=== PATIENT | female | born 1950 | race Caucasian/White ===

== ENCOUNTER 2016-11-01 07:45 | Inpatient (IN) | payer MEDICARE ==
--- NOTE | 2017-02-21 08:19 | HP ---
AMENDED REPORT NOW INCLUDES COSIGNER DESIGNATION - ESIGNED BEFORE ADJUSTMENT DATE OF ADMISSION: 02/28/17 DATE OF OFFICE VISIT: 02/20/17 SURGEON: Karely Coyle MD ATTENDING PHYSICIAN: Karely Coyle MD * (dictated by FANTASMA Alamo) PROCEDURE: Right total knee arthroplasty. CHIEF COMPLAINT: Right knee pain. HISTORY OF PRESENT ILLNESS: Ms. Gerardo is a 66-year-old female with complaints of right knee pain secondary to advanced osteoarthritis. She's failed conservative management and has elected to proceed with a right total knee arthroplasty. PAST MEDICAL HISTORY: 1. Atrial fibrillation. 2. Hypertension. 3. Sleep apnea. PAST SURGICAL HISTORY: 1. . 2. Bilateral knee arthroscopies. 3. Nasal polyp removal. 4. Tonsillectomy, adenoidectomy. 5. I and D of the left knee x2. 6. Exploratory laparoscopy. CURRENT MEDICATIONS: 1. Percocet. 2. Aspirin 81 mg daily. 3. Triamterene/hydrochlorothiazide 37.5/25 daily. 4. Folate 1 mg daily. 5. Vitamin D 2000 units daily. 6. Metoprolol 100 mg twice a day. 7. Magnesium 400 mg two capsules daily. 8. Fluoxetine 60 mg daily. 9. Amlodipine 2.5 mg daily. ALLERGIES: No known drug allergies. FAMILY HISTORY: Heart disease. SOCIAL HISTORY: She is a 66-year-old female. She lives alone. She is a retired plant operator helper. She uses occasional alcohol, and denies use of alcohol or tobacco. REVIEW OF SYSTEMS: A complete 14-point review of systems was reviewed with the patient and is all negative or noncontributory. PHYSICAL EXAMINATION GENERAL: She is well developed, well nourished, in no acute distress. VITAL SIGNS: She stands 5 feet 9 inches tall, weighs 225 pounds. Her blood pressure is 123/88, and her heart rate is 55. HEENT: Normocephalic, atraumatic. NECK: Supple. No palpable lymph nodes. PULMONARY: The lungs are clear to auscultation bilaterally. CARDIO: Regular rate and rhythm. Strong S1 and S2. ABDOMEN: Soft, nontender, nondistended. NEUROLOGIC: She is alert and oriented x3. Cranial nerves II through XII are intact. MUSCULOSKELETAL: Right lower extremity skin is intact. There are no open wounds or abrasions. She has moderate joint effusion, some tenderness over the medial and lateral joint line to 120 degrees of flexion. Her lower extremity muscle group strength is intact at 5/5. She has 2+ dorsalis pedis pulses and intact sensation. ASSESSMENT AND PLAN: Ms. Gerardo is a 66-year-old female with complaints of right knee pain. She has failed conservative management and has elected to proceed with a right total knee arthroplasty which is scheduled for 02/28/[address] Coyle discussed the risks and benefits of the surgery at today's visit, and all of her questions were answered. Percocet, Colace and Coumadin were sent to her pharmacy for post-operative pain control and DVT prophylaxis. She will see Dr. Coyle two weeks after the surgery. FANTASMA ALAMO [id number]/[facility] #: [id number] JOSE M
[2017-02-27] MEDS ORDERED: Buffered Lidocaine 0.9% SYRIN* 5 ML/SYR SYRINGE INTRADERM ONE (13:17)
[2017-02-28] MEDS ORDERED: Dexamethasone IV* 4 MG/ML 1 ML (4 MG) IV SLOW PU ONE (06:00)
[2017-02-28] MEDS ORDERED: Famotidine IV* 10 MG/ML 2 ML (20 mg) IV ONE (06:00)
[2017-02-28] MEDS ORDERED: Famotidine IV* 10 MG/ML 2 ML (20 mg) ONE (10:10)
[2017-02-28] MEDS ORDERED: Dexamethasone IV* 4 MG/ML 1 ML (4 MG) ONE (10:10)
[2017-02-28] MEDS ORDERED: Midazolam* 1 MG/ML 5 ML VIAL (5 MG) ONE ×2 (10:48→12:33)
[2017-02-28] MEDS ORDERED: KETAMINE HCL* 50 MG/ML 10 ML VIAL ONE (10:48)
[2017-02-28] MEDS ORDERED: Morphine PF AMP (0.5MG/ML)* 5 MG/10 ML AMP ONE (10:48)
[2017-02-28] MEDS ORDERED: Phenylephrine INJ* 10 MG/ML 1 ML VIAL (10 MG) ONE (10:50)
[2017-02-28] MEDS ORDERED: Propofol* 10 MG/ML 20 ML BTL IV PUSH ONE ×2 (10:52→13:41)
[2017-02-28] MEDS ORDERED: ceFAZolin 2 GM PREMIX(*) 2 GM/50 ML BAG IVPB ONE (11:14)
[2017-02-28] MEDS ORDERED: Nalbuphine* 20 MG/ML 1 ML VIAL IV PRN ×2 (13:24)
[2017-02-28] MEDS ORDERED: Naloxone* 0.4 MG/ML 1 ML VIAL IV PRN (13:24)
[2017-02-28] MEDS ORDERED: Ondansetron INJ* 2 MG/ML VIAL IV PRN (13:24)
[2017-02-28] MEDS ORDERED: fentaNYL* 50 MCG/ML 2 ML VIAL (100 MCG VIAL) IV PRN (13:24)
[2017-02-28] MEDS ORDERED: DiMENhydriNATE IV* 50 MG/ML VIAL IV PUSH PRN (13:24)
[2017-02-28] MEDS ORDERED: oxyCODONE/Acetamin 5/325 MG* TAB PO PRN ×2 (13:24→15:27)
[2017-02-28] MEDS ORDERED: Scopolamine 1.5 mg* PATCH TRANSDERM SCH (14:00)
[2017-02-28] MEDS ORDERED: Magnesium Hydroxide LIQ* 30 ML UDC PO PRN (15:27)
[2017-02-28] MEDS ORDERED: Polyethylene Glycol 3350* 17 GM PACKET PO PRN (15:27)
[2017-02-28] MEDS ORDERED: Acetaminophen TAB* 325 MG PO PRN (15:27)
[2017-02-28] MEDS ORDERED: Bisacodyl SUPP* 10 MG SUPP PR PRN (15:27)
[2017-02-28] MEDS: Ropivacaine* 300 MG in NS 0.9% 250 ML* 240 ML EPIDURAL SCH (15:38)
[2017-02-28] MEDS ORDERED: ceFAZolin 1 GM ADVAN(*) 1 GM in NS 0.9% 50 ML* 50 ML IVPB SCH (16:00)
--- NOTE | 2017-02-28 16:25 | RAD ---
INDICATION: Right total knee replacement COMPARISON: December 23, 2015 TECHNIQUE: AP and lateral views were obtained. FINDINGS: There is right knee arthroplasty. Both femoral and tibial components appear well seated. There is an overlying cooling jacket. IMPRESSION: POSTOPERATIVE RIGHT KNEE ARTHROPLASTY.
[2017-02-28] MEDS ORDERED: Warfarin TAB(*) 6 MG PO ONE (17:00)
[2017-02-28] MEDS ORDERED: oxyCODONE/Acetamin 5/325 MG* TAB ONE (17:49)
[2017-02-28] MEDS ORDERED: Metoprolol Tartrate TAB* 100 MG TAB PO SCH (21:00)
[2017-02-28] MEDS: oxyCODONE/Acetamin 5/325 MG* TAB PO PRN (21:56)
[2017-02-28] MEDS: Docusate CAP* 100 MG PO SCH (21:56)
[2017-02-28] MEDS: ceFAZolin 1 GM ADVAN(*) 1 GM in NS 0.9% 50 ML* 50 ML IVPB SCH (23:00)
[2017-02-28] MEDS: Metoprolol Tartrate TAB* 100 MG TAB PO SCH (23:00)
--- NOTE | 2017-03-01 00:14 | CONS ---
CC: Dr. Coyle; Romelia Barrios MD * CONSULTATION REPORT: DATE OF CONSULT: 02/28/17 PRIMARY CARE PROVIDER: Dr. Barrios. REQUESTING PHYSICIAN FOR CONSULT: Dr. Coyle. MY ATTENDING PHYSICIAN WHILE IN THE HOSPITAL: Chelo Fuentes DO (report dictated by Kye Daigle NP). REASON FOR MEDICAL CONSULTATION: Evaluation and medical management of comorbid medical problems. HISTORY OF PRESENTING ILLNESS: I refer you to Dr. Coyle's H and P for further details. In short, Ms. Gerardo is a 66-year-old female patient, who has a history of AFib, hypertension, and KATHARINE, who was being seen by Dr. Coyle in the outpatient setting for knee pain particularly on the right knee which she failed conservative therapy for pain management and it was felt that she had advanced osteoarthritis and felt that she would benefit from a total knee replacement, which she underwent today. She was evaluated in the PACU setting. She denies having any chest pain. She denies having any shortness of breath. She says she is feeling well and says her pain is well controlled. She cannot move her legs yet she says, but she did undergo spinal anesthesia. She denies having any abdominal pain. Denies feeling nauseated. Denies having again any chest pain or any shortness of breath. Because of her medical complexity, we were asked to evaluate in consult. PAST MEDICAL HISTORY: Significant for: 1. AFib. 2. Hypertension. 3. KATHARINE. PAST SURGICAL HISTORY: She has had: 1. . 2. Bilateral knee arthroscopy. 3. I and D of the left knee. 4. Exploratory laparotomy. 5. Nasal polyp extraction x2. 6. Tonsillectomy. 7. Back surgery. HOME MEDICATIONS: According to the list provided preop include: 1. Percocet 1 tablet every 8 hours as needed. 2. Vitamin D 2000 units p.o. every other day. 3. Dyazide 1 capsule p.o. daily. 4. Lopressor 100 mg p.o. b.i.d. 5. Magnesium 400 mg p.o. daily. 6. Folic acid 1 mg daily. 7. Prozac 60 mg p.o. q.p.m. 8. Aspirin 81 mg daily. 9. Amlodipine 2.5 mg p.o. q.a.m. ALLERGIES TO MEDICATIONS: Include LATEX and NSAIDS. FAMILY HISTORY: Mother had a history of dementia. Father had a ID. SOCIAL HISTORY: She does not smoke. Occasionally drinks alcohol. Surrogate decision maker is her son. REVIEW OF SYSTEMS: There is a documented fever. She denied having any significant weight change. There was no double vision. There is no ear discharge. She denies having any rhinorrhea. No sore throat. No thyroid enlargement. Denies having any chest pain. There is no orthopnea. No nocturnal dyspnea. There is no abdominal pain. No nausea. No vomiting. No dysuria. No frequency. No seizure. No loss of consciousness, no pruritus, and no skin ulcerations. Review of 14 systems completed, all others negative. PHYSICAL EXAM: Blood pressure 132/65, pulse 58, respirations 14, O2 sat 100%, and temperature of 97.5. General: At this time, Ms. Gerardo is a 66-year-old female patient. She appears to be well nourished, well developed. She does not appear to be in any acute distress. HEENT: Head is atraumatic. Eyes: EOMs are intact. Sclerae anicteric and not pale. Neck: Supple. Throat: Oral mucosa appears to be moist. No oropharyngeal erythema. Heart: Sounds S1, S2. Regular rate and rhythm. No murmurs, rubs, or gallops. Lungs: Clear to auscultation bilaterally. No wheezes, rales, or rhonchi. Abdomen: Soft, flat, and nontender. Bowel sounds are hypoactive. Extremities: Pulses 2+ throughout. She cannot move the lower extremities. She has 5/5 strength in the upper extremities. Distal CSM checks are intact to the left lower and right lower extremity. Neurologically, she is awake, alert, and oriented x3. No gross focal deficits. The skin revealed an incision to the right knee, covered with an Gilbert dressing, it was clean, dry, and intact. Hemovac intact. DIAGNOSTIC STUDIES/LAB DATA: Labs, preop revealed WBC of 5.6, RBC of 4.02, hemoglobin of 13.3, hematocrit of 40, platelet count of 193. The INR was 0.85. Sodium was 138, potassium 4.2, chloride of 102, bicarb 30, BUN 19, creatinine 1.08, glucose was 80. Urine preop was negative. She had an EKG obtained preop , which showed a normal sinus rhythm, rate of 63. No ST elevations or T-wave inversions were noted. She had a preop nuclear stress test, impression was normal stress test. No perfusion defects were noted according again on the reports on the chart. Chest x-ray showed no evidence of acute intrathoracic disease. Old medical records were reviewed. ASSESSMENT AND PLAN: Ms. Gerardo is a 66-year-old female patient coming into Dr. Coyle's service today for an elective right total knee replacement and the hospitalist service was asked to evaluate in consult due to medical complexity. My recommendations at this point are: 1. Status post right total knee replacement. Defer the management to Dr. Coyle and her team. 2. Atrial fibrillation. She appears to be in sinus rhythm. She does have episodes of atrial fibrillation, her medications as prescribed. 3. Hypertension. Continue her Norvasc and her amlodipine. I am holding the Dyazide. I did write for hold parameters and monitor. 4. History of obstructive sleep apnea. She is not on CPAP at night. So, I will go ahead and have a 24-hour pulse oximetry postop. 5. DVT prophylaxis. I will defer to the primary team. 6. Code status. Full code. 7. Fluids, electrolytes, and nutrition. I would recommend a heart healthy diet. TIME SPENT: Time spent on the consult was 60 minutes, greater than half the time was spent [id number] with the patient obtaining my history and physical, other half of the time spent going over the plan of care with the patient and implementing the plan of care. I did discuss the plan of care with my attending, Dr. Fuentes; she is in agreement. KYE DAIGLE, JUAN [id number]/[facility] #: [id number] JOSE M
[2017-03-01] MEDS: oxyCODONE/Acetamin 5/325 MG* TAB PO PRN ×5 (02:55→21:49)
[2017-03-01 05:47] LABS: Hematocrit 26 % (35-47); Hemoglobin 8.6 g/dl (12.0-16.0); Mean Corpuscular HGB Conc 33 g/dl (31-36); Mean Corpuscular Hemoglobin 33 pg (27-31); Mean Corpuscular Volume 100 fL (80-97); Mean Platelet Volume 9 um3 (7.4-10.4); Red Blood Count 2.58 10^6/ul (4.0-5.4); Red Cell Distribution Width 14 % (10.5-15); White Blood Count 8.8 10^3/ul (3.5-10.8)
[2017-03-01] MEDS ORDERED: diPHENhydraMINE IV* 50 MG/ML 1 ml VIAL (BENADRYL) IV PRN (06:00)
[2017-03-01] MEDS ORDERED: Ondansetron TAB* 4 MG PO PRN (06:00)
[2017-03-01] MEDS ORDERED: Ondansetron INJ* 2 MG/ML VIAL IV PRN (06:00)
[2017-03-01] MEDS ORDERED: Scopolomine PATCH Remove* 1 NOTE MISC PATCH OFF ONE (06:00)
[2017-03-01] MEDS ORDERED: oxyCODONE/Acetamin 5/325 MG* TAB PO PRN (06:00)
[2017-03-01] MEDS ORDERED: Morphine INJ* 2 MG/ML 1 ML SYRINGE IV PRN (06:00)
[2017-03-01 06:04] LABS: BUN/Creatinine Ratio 19.8 (8-20); Calcium 8.4 mg/dL (8.6-10.3); EGFR Non-African American 58.3 (>60); Potassium 3.6 mmol/L (3.5-5.0)
[2017-03-01] MEDS: ceFAZolin 1 GM ADVAN(*) 1 GM in NS 0.9% 50 ML* 50 ML IVPB SCH ×2 (06:33→15:20)
--- NOTE | 2017-03-01 08:03 | PN ---
Progress Note - Progress Note Date of Service: 03/01/17 SOAP: Subjective: Pt. reports uncontrolled pain this AM. Objective: RLE - drain removed, tip intact, distally +df/pf, full sens lt, 2+ dp pulse. Vital Signs: Temp Pulse Resp BP Pulse Ox 97.4 F 59 18 109/55 100 03/01/17 07:27 03/01/17 07:27 03/01/17 07:40 03/01/17 07:27 03/01/17 07:27 Laboratory Results - last 24 hr 03/01/17 03/01/17 03/01/17 05:33 05:33 05:33 WBC 8.8 RBC 2.58 L Hgb 8.6 L Hct 26 L MCV 100 H MCH 33 H MCHC 33 RDW 14 Plt Count 127 L MPV 9 Neut % (Auto) 76.2 Lymph % (Auto) 14.6 L [facility] % (Auto) 8.5 Eos % (Auto) 0.2 Baso % (Auto) 0.5 Absolute Neuts (auto) 6.7 Absolute Lymphs (auto) 1.3 Absolute Monos (auto) 0.7 Absolute Eos (auto) 0 Absolute Basos (auto) 0 Absolute Nucleated RBC 0 Nucleated RBC % 0 INR (Anticoag Therapy) 0.94 Sodium 135 Potassium 3.6 Chloride 103 Carbon Dioxide 28 Anion Gap 4 BUN 19 Creatinine 0.96 H Est GFR ( Amer) 75.0 Est GFR (Non-Af Amer) 58.3 BUN/Creatinine Ratio 19.8 Glucose 117 H Calcium 8.4 L Assessment: 66 yo F pod 1 s/p RTKA Plan: wbat rle pt/ot coumadin tonight, lovenox this am add 10 mg oxycontin bid for pain control
[2017-03-01] MEDS: oxyCODONE TAB* 5 MG TAB PO PRN ×4 (08:57→23:50)
[2017-03-01] MEDS: oxyCODONE SR TAB(*) 10 MG TAB.SR PO SCH ×2 (08:59→20:39)
[2017-03-01] MEDS ORDERED: NON FORMULARY MED* (Amlodipine Besylate [Norvasc 2.5 Mg Tab] 2.5 MG) PO SCH (09:00)
[2017-03-01] MEDS ORDERED: Triamterene/HCTZ 37.5-25 MG* CAP PO SCH (09:00)
[2017-03-01] MEDS: amLODIPine TAB* 5 MG PO SCH (09:29)
[2017-03-01] MEDS: Magnesium Oxide TAB* 400 MG PO SCH (09:37)
[2017-03-01] MEDS: Docusate CAP* 100 MG PO SCH ×2 (09:37→20:40)
[2017-03-01] MEDS: Potassium Chlor TAB* 10 MEQ TAB.ER PO SCH ×2 (09:38→20:40)
[2017-03-01] MEDS: FLUoxetine CAP* 20 MG PO SCH (09:40)
[2017-03-01] MEDS: Metoprolol Tartrate TAB* 100 MG TAB PO SCH ×2 (09:41→20:40)
--- NOTE | 2017-03-01 11:09 | PN ---
Subjective Date of Service: 03/01/17 Interval History: Patient seen and examined at bedside. Pt states that her pain control has been an issue, but is improving. She reports muscle spasms in her legs. Denies fever , chills, shortness of breath, chest discomfort, N/V/D. Pt reports lightheadedness when she is up. Family History: Unchanged from Admission Social History: Unchanged from Admission Past Medical History: Unchanged from Admission Objective Active Medications: Acetaminophen (Tylenol Tab*) 650 mg PO Q4H PRN Reason: PAIN OR TEMPERATURE Amlodipine Besylate (Norvasc Tab*) 2.5 mg PO QAM [facility] Bisacodyl (Dulcolax Supp*) 10 mg [place] DAILY PRN Reason: constipation Diphenhydramine HCl (Benadryl Iv*) 12.5 mg IV Q6H PRN Reason: PRURITIS Docusate Sodium (Colace Cap*) 100 mg PO BID [facility] Enoxaparin Sodium (Lovenox(*)) 30 mg SUBCUT Q24H [facility] Fluoxetine HCl (Prozac Cap*) 60 mg PO QAM [facility] Ropivacaine 300 mg/ Sodium (Chloride) 300 mls @ 0 mls/hr EPIDURAL Q24H EVERARDO; Per Protocol Lactated Ringer's (Lactated Ringers 1000 Ml Bag*) 1,000 mls @ 100 mls/hr IV PER RATE [facility] Cefazolin Sodium 1 gm/ Sodium (Chloride) 50 mls @ 200 mls/hr IVPB 0700,1500, 2300 [place] Stop: 03/01/17 15:14 Lactulose (Lactulose*) 30 ml PO Q6H PRN Reason: constipation Magnesium Hydroxide (Milk Of Magnesia Liq*) 30 ml PO Q6H PRN Reason: constipation Magnesium Oxide (Magox 400 Tab*) 400 mg PO QAM [facility] Metoprolol Tartrate (Lopressor Tab*) 100 mg PO BID [facility] Morphine Sulfate (Morphine Inj (Syringe)*) 2 mg IV Q2H PRN Reason: PAIN Ondansetron HCl (Zofran Inj*) 4 mg IV Q6H PRN Reason: nausea Ondansetron HCl (Zofran Tab*) 4 mg PO Q6H PRN Reason: NAUSEA Oxycodone HCl (Roxycodone Tab*) 10 mg PO Q4H PRN Reason: SEVERE PAIN Oxycodone HCl (Oxycontin(*)) 10 mg PO BID [facility] Oxycodone/Acetaminophen (Percocet 5/325 Tab*) 1 tab PO Q3H PRN Reason: PAIN - MODERATE Oxycodone/Acetaminophen (Percocet 5/325 Tab*) 2 tab PO Q3HR PRN Reason: PAIN - MODERATE Pharmacy Profile Note (Coumadin Daily Reminder*) 1 note FOLLOW UP 1700 [facility] Polyethylene Glycol/Electrolytes (Miralax*) 17 gm PO DAILY PRN Reason: Constipation Potassium Chloride (Klor Con Er Tab*) 10 meq PO BID [facility] Stop: 03/03/17 09:00 Warfarin Sodium (Coumadin Tab(*)) 10 mg PO ONCE@1700 ONE Stop: 03/01/17 17:01 Vital Signs 02/28/17 02/28/17 02/28/17 15:28 15:30 15:35 Temperature 97.5 F Pulse Rate 58 57 62 Respiratory 14 14 15 Rate Blood Pressure 132/65 113/102 125/69 (mmHg) O2 Sat by Pulse 100 100 98 Oximetry 02/28/17 02/28/17 02/28/17 15:40 15:45 16:00 Temperature Pulse Rate 61 56 57 Respiratory 16 15 16 Rate Blood Pressure 131/73 126/76 124/70 (mmHg) O2 Sat by Pulse 100 100 100 Oximetry 02/28/17 02/28/17 02/28/17 16:15 16:26 16:30 Temperature Pulse Rate 54 55 Respiratory 14 16 14 Rate Blood Pressure 125/77 133/67 (mmHg) O2 Sat by Pulse 100 100 Oximetry 02/28/17 02/28/17 02/28/17 17:00 17:30 17:52 Temperature 97.2 F Pulse Rate 57 86 Respiratory 16 16 16 Rate Blood Pressure 137/66 134/72 (mmHg) O2 Sat by Pulse 100 100 Oximetry 02/28/17 02/28/17 02/28/17 18:00 18:22 18:38 Temperature 97.1 F 97.1 F Pulse Rate 55 57 57 Respiratory 16 14 14 Rate Blood Pressure 102/85 131/71 131/71 (mmHg) O2 Sat by Pulse 100 100 100 Oximetry 02/28/17 02/28/17 02/28/17 19:18 20:00 20:10 Temperature 97.8 F Pulse Rate 61 Respiratory 15 16 18 Rate Blood Pressure 120/60 (mmHg) O2 Sat by Pulse 100 Oximetry 02/28/17 02/28/17 02/28/17 20:14 21:10 21:56 Temperature 98.0 F Pulse Rate 55 Respiratory 15 16 18 Rate Blood Pressure 112/59 (mmHg) O2 Sat by Pulse 100 Oximetry 02/28/17 02/28/17 03/01/17 22:03 23:56 00:21 Temperature 98.4 F 97.3 F Pulse Rate 59 56 Respiratory 16 16 16 Rate Blood Pressure 104/51 92/44 (mmHg) O2 Sat by Pulse 100 100 Oximetry 03/01/17 03/01/17 03/01/17 02:51 02:55 04:55 Temperature 97.7 F Pulse Rate 59 Respiratory 16 18 16 Rate Blood Pressure 121/54 (mmHg) O2 Sat by Pulse 100 Oximetry 03/01/17 03/01/17 03/01/17 06:32 07:27 07:40 Temperature 97.4 F Pulse Rate 59 Respiratory 18 14 18 Rate Blood Pressure 109/55 (mmHg) O2 Sat by Pulse 100 Oximetry 03/01/17 03/01/17 03/01/17 08:00 08:15 08:32 Temperature Pulse Rate Respiratory 14 14 16 Rate Blood Pressure (mmHg) O2 Sat by Pulse 100 Oximetry 03/01/17 03/01/17 03/01/17 09:14 09:15 09:40 Temperature 97.4 F Pulse Rate 59 Respiratory 14 16 Rate Blood Pressure 128/61 (mmHg) O2 Sat by Pulse 100 100 Oximetry Oxygen Devices in Use Now: None Appearance: NAD, sitting up in a chair Ears/Nose/Mouth/Throat: Mucous Membranes Moist Respiratory: Symmetrical Chest Expansion and Respiratory Effort, Clear to Auscultation Cardiovascular: NL Sounds; No Murmurs; No JVD, RRR Abdominal: NL Sounds; No Tenderness; No Distention Extremities: No Edema Skin: No Rash or Ulcers, - - Dressing to right knee clean, dry and intact Neurological: Alert and Oriented x 3, NL Muscle Strength and Tone Lines/Tubes/Other Access: Clean, Dry and Intact Peripheral IV - site benign Nutrition: Taking PO's Result Diagrams: 03/01/17 05:33 03/01/17 05:33 Assess/Plan/Problems-Billing Assessment: Ms. Gerardo is a 66 yo female with PMH significant for Afib, HTN and KATHARINE who presented to the hospital for an elective right total knee replacement with Dr. Coyle in 02/28/17. - Patient Problems (1) Status post total right knee replacement Code(s): Z96.651 - PRESENCE OF RIGHT ARTIFICIAL KNEE JOINT SNOMED Code(s): 4675962837212 Comment: - POD #1 - Management per Ortho - Trend HH - Continue pain management, PT/OT, bowel regimen (2) Afib Code(s): I48.91 - UNSPECIFIED ATRIAL FIBRILLATION SNOMED Code(s): 69827384 Comment: - Heart rate regular, rate controlled - Continue Lopressor (3) HTN (hypertension) Code(s): I10 - ESSENTIAL (PRIMARY) HYPERTENSION SNOMED Code(s): 22323948 Comment: - Normotensive, SBP 90-120's - Continue lopressor and dyazide (4) KATHARINE (obstructive sleep apnea) Code(s): G47.33 - OBSTRUCTIVE SLEEP APNEA (ADULT) (PEDIATRIC) SNOMED Code(s): 33337979 Comment: - Doesn't use CPAP at home, she is getting fit for an oral appliance (5) DVT prophylaxis Code(s): USC2577 - SNOMED Code(s): 363356568 Comment: - Lovenox bridge to Warfarin per Ortho (6) Full code status Code(s): Z78.9 - OTHER SPECIFIED HEALTH STATUS SNOMED Code(s): 484797129 Status and Disposition: Inpatient. Disposition per Orthopedics. Thank you for this consultation, we will continue to follow along.
[2017-03-01] MEDS: Cyclobenzaprine TAB* 10 MG PO PRN ×2 (11:40→23:52)
[2017-03-01] MEDS: Ketorolac INJ* 30 MG/ML 1 ML VIAL IV PUSH PRN (11:40)
[2017-03-01] MEDS: Enoxaparin(*) 30 MG/0.3 ML SYR SUBCUT SCH (11:41)
[2017-03-01] MEDS: Ropivacaine* 300 MG in NS 0.9% 250 ML* 240 ML EPIDURAL SCH (13:15)
[2017-03-01] MEDS: HYDROmorphone* 1 MG/ML 1 ML SYR IV SLOW PU PRN (15:14)
[2017-03-01] MEDS ORDERED: Warfarin TAB(*) 10 MG PO ONE (17:00)
[2017-03-02] MEDS: HYDROmorphone* 1 MG/ML 1 ML SYR IV SLOW PU PRN (00:55)
[2017-03-02] MEDS: oxyCODONE/Acetamin 5/325 MG* TAB PO PRN ×5 (02:07→23:52)
--- NOTE | 2017-03-02 03:17 | OP ---
DATE OF OPERATION: 02/28/17 - ROOM #343 DATE OF : 52 ATTENDING SURGEON: Karely Coyle MD BOX FOLDING MACHINE OPERATOR: FANTASMA Johnston. Jonn Sam did help throughout the procedure with preparation of the leg, wound retraction, manipulation of the knee, and wound closure. ANESTHESIOLOGIST: Dr. Pineda. ANESTHESIA: Spinal. PRE-OP DIAGNOSIS: Severe end-stage degenerative osteoarthritis of the right knee joint. POST-OP DIAGNOSIS: Severe end-stage degenerative osteoarthritis of the right knee joint. OPERATIVE PROCEDURE: Right total knee arthroplasty. TOURNIQUET TIME: 56 minutes. COMPLICATIONS: None. SPECIMEN: Bone and cartilage from the right knee joint sent to pathology. ESTIMATED BLOOD LOSS: 350 cc. HARDWARE USED: This is cemented [employer] total knee arthroplasty hardware. Two packages of Simplex bone cement were used. For the femur, an Oxinium 0.65 posterior stabilized femoral component. For the tibia, a size 6 right tibial baseplate. For the insert, an 11-mm posterior stabilized articular insert size 5- 6; and for the patella, a size 35 3-peg all poly patella. BRIEF HISTORY/INDICATION: Ms. Gerardo is a 66-year-old female with years of increasingly severe right knee pain. She failed conservative treatment with the anti-inflammatories, pain medications, intraarticular injections, physical therapy. She did attempt at loosening weight preoperatively. Radiographs showed bone on bone arthritis. She elected to undergo right total knee arthroplasty due to continued pain and decreased quality of life. Informed consent was obtained from the patient. She understood the risks of the surgery included, but were not limited to bleeding, infection, damage to nearby structures, continued pain, need for further surgery, early loosening, intraoperative fracture, nerve palsy, hardware failure, knee stiffness, loss of motion, stroke, heart attack, blood clot, and . She wished to proceed. INTRAOPERATIVE FINDINGS: Intraoperatively, the patient was noted to have severe end-stage arthritis of the right knee joint. There was complete loss of cartilage in the medial and patellofemoral compartment. DESCRIPTION OF PROCEDURE: Ms. Gerardo was identified in the preanesthesia unit. Her right lower extremity was marked as the correct operative side. Informed consent was signed and placed in the chart. The patient was taken to the operating room and placed under spinal anesthesia. A Solano catheter was placed. Tourniquet was placed on the right thigh. Right lower extremity was prepped and draped in the usual sterile fashion. Preop time-out was made to correctly identify the patient's side and site. Appropriate perioperative antibiotics were given within 1 hour of incision. A midline incision was made with a 10 blade and carried down to the extensor mechanism. A new 10 blade was used to make a standard medial parapatellar arthrotomy. Patella was subluxed laterally. Electrocautery was used to subperiosteally elevate soft tissue off the superomedial tibia to the mid sagittal plane. The knee was flexed up. The anterior horn of the lateral meniscus and ACL were sharply released. A drill was used to enter the distal femur. Intramedullary distal femoral cutting guide was pinned and 9-mm of distal femoral bone was carefully removed with an oscillating saw. External rotation guide was pinned on the distal femur. The femur was sized to a size 6. Size 6 multi-cutting jig was pinned on the distal femur. Oscillating saw was used to make the appropriate 4 chamfer cuts. The PCL was completely released. The tibia was subluxed anteriorly. Extramedullary tibial cutting guide was pinned on the proximal tibia. The oscillating saw was used to make the proximal tibial cut perpendicular to the mechanical axis of the tibia. The bone was carefully removed. The knee was brought out into full extension. The spacer block had good fit. There was medial and lateral ligamentous balancing. Flexion and extension gaps were well balanced. The knee was flexed up. A lamina armhole baster hand was placed both medially and laterally. Electrocautery was used to remove any remaining meniscus. Curved osteotome was used to remove posterior osteophytes. A size 6 right femoral trial was impacted on to the femur and had good fit. The box for the posterior stabilized implant was prepared using a reamer and box cut osteotome. Size 6 tibial tray and 9 mm insert trial were placed. The knee was taken through a range of motion. There was full extension to 120 degrees of flexion. Flexion was limited by morbid obesity. There was satisfactory patellofemoral tracking. The patella was everted. 9 mm of patellar bone and cartilage was carefully removed with an oscillating saw. The patella was sized to a size 35. Three peg holes were drilled through the size 35 guide. A 35 trial patella was placed and the knee was taken through a range of motion. There was satisfactory patellofemoral tracking. All trials were carefully removed. The tibia was subluxed anteriorly and sized to a size 6. Proximal tibia was prepared using a keel punch. All bony cut surfaces were copiously irrigated with sterile saline and dried. Final implants were cemented in place starting with the tibia, followed by the femur, and last the patella. An 11-mm insert trial was placed while the knee was brought out into full extension. Tourniquet was turned down at 56 minutes. The knee was copiously irrigated with sterile saline. Once the cement had fully cured, electrocautery was used to obtain meticulous hemostasis. The insert trial was removed. Any excess cement was carefully removed from around the implant and capsule. Final insert chosen was 11 mm posterior stabilized articular insert size 5/6. This was locked into position on the tibial tray without difficulty. Stability of the insert was checked and rechecked and noted to be stable. Final range of motion with full extension to 120 degrees of flexion limited only by morbid obesity. The knee was copiously irrigated with sterile saline. The extensor mechanism was closed using interrupted #1 Vicryls over a medium Hemovac drain. The rest of the incision was closed in a layered fashion using 0 and 2-0 Vicryls. Skin was closed using running 3-0 nylon suture. Sterile Xeroform, 4x4s, and Webril were used to cover the incision. Gilbert wrap and cold pack was placed over this. The patient's anesthesia was reversed without difficulty. She was taken to the PACU in stable condition. Intended weightbearing will be weightbearing as tolerated. Intended DVT prophylaxis will be Coumadin with a Lovenox bridge. [id number]/[facility] #: [id number] [facility]
[2017-03-02] MEDS: oxyCODONE TAB* 5 MG TAB PO PRN ×4 (04:26→20:56)
[2017-03-02 05:27] LABS: Hematocrit 21 % (35-47); Hemoglobin 7.3 g/dl (12.0-16.0)
[2017-03-02] MEDS: Cyclobenzaprine TAB* 10 MG PO PRN (06:26)
--- NOTE | 2017-03-02 07:59 | PN ---
Progress Note - Progress Note Date of Service: 03/02/17 SOAP: Subjective: Pt. alert, pain is moderate but controlled. Objective: RLE - dressing changed, inc c/d/i, distally nvi. Vital Signs: Temp Pulse Resp BP Pulse Ox 98.1 F 89 16 125/82 97 03/02/17 03:33 03/02/17 03:33 03/02/17 06:27 03/02/17 03:33 03/02/17 03:33 Laboratory Results - last 24 hr 03/02/17 03/02/17 03/02/17 05:17 05:17 05:17 Hgb 7.3 L Hct 21 L INR (Anticoag Therapy) 1.33 H Blood Type B Positive Crossmatch See Detail Assessment: 66 yo F pod 2 s/p RTKA Plan: pt/ot wbat rle 8 mg coumadin tonight, lovenox today plan d/c to home tomorrow
[2017-03-02] MEDS: Magnesium Oxide TAB* 400 MG PO SCH (09:05)
[2017-03-02] MEDS: Potassium Chlor TAB* 10 MEQ TAB.ER PO SCH ×2 (09:05→20:56)
[2017-03-02] MEDS: Docusate CAP* 100 MG PO SCH ×2 (09:05→20:56)
[2017-03-02] MEDS: oxyCODONE SR TAB(*) 10 MG TAB.SR PO SCH ×2 (09:07→20:56)
[2017-03-02] MEDS: FLUoxetine CAP* 20 MG PO SCH (09:08)
[2017-03-02] MEDS: Metoprolol Tartrate TAB* 100 MG TAB PO SCH ×2 (09:08→20:56)
[2017-03-02] MEDS: amLODIPine TAB* 5 MG PO SCH (09:09)
[2017-03-02] MEDS: Enoxaparin(*) 30 MG/0.3 ML SYR SUBCUT SCH (12:33)
--- NOTE | 2017-03-02 13:44 | PN ---
Subjective Date of Service: 03/02/17 Interval History: Patient seen and examined at bedside. Denies fever, chills, shortness of breath , chest discomfort, N/V/D. Pt states that she has pain, but it is controlled. Family History: Unchanged from Admission Social History: Unchanged from Admission Past Medical History: Unchanged from Admission Objective Active Medications: Acetaminophen (Tylenol Tab*) 650 mg PO Q4H PRN Reason: PAIN OR TEMPERATURE Amlodipine Besylate (Norvasc Tab*) 2.5 mg PO QAM [facility] Bisacodyl (Dulcolax Supp*) 10 mg [place] DAILY PRN Reason: constipation Cyclobenzaprine HCl (Flexeril Tab*) 10 mg PO TID PRN Reason: muscle spasm Diphenhydramine HCl (Benadryl Iv*) 12.5 mg IV Q6H PRN Reason: PRURITIS Docusate Sodium (Colace Cap*) 100 mg PO BID [facility] Enoxaparin Sodium (Lovenox(*)) 30 mg SUBCUT Q24H [facility] Fluoxetine HCl (Prozac Cap*) 60 mg PO QAM [facility] Hydromorphone HCl (Dilaudid Iv*) 0.5 mg IV SLOW PU Q4H PRN Reason: PAIN Lactated Ringer's (Lactated Ringers 1000 Ml Bag*) 1,000 mls @ 100 mls/hr IV PER RATE [facility] Ketorolac Tromethamine (Toradol Inj*) 30 mg IV PUSH Q6H PRN Reason: PAIN Lactulose (Lactulose*) 30 ml PO Q6H PRN Reason: constipation Magnesium Hydroxide (Milk Of Magnesia Liq*) 30 ml PO Q6H PRN Reason: constipation Magnesium Oxide (Magox 400 Tab*) 400 mg PO QAM [facility] Metoprolol Tartrate (Lopressor Tab*) 100 mg PO BID [facility] Ondansetron HCl (Zofran Inj*) 4 mg IV Q6H PRN Reason: nausea Ondansetron HCl (Zofran Tab*) 4 mg PO Q6H PRN Reason: NAUSEA Oxycodone HCl (Roxycodone Tab*) 10 mg PO Q4H PRN Reason: SEVERE PAIN Oxycodone HCl (Oxycontin(*)) 10 mg PO BID [facility] Oxycodone/Acetaminophen (Percocet 5/325 Tab*) 1 tab PO Q3H PRN Reason: PAIN - MODERATE Oxycodone/Acetaminophen (Percocet 5/325 Tab*) 2 tab PO Q3HR PRN Reason: PAIN - MODERATE Pharmacy Profile Note (Coumadin Daily Reminder*) 1 note FOLLOW UP 1700 [facility] Polyethylene Glycol/Electrolytes (Miralax*) 17 gm PO DAILY PRN Reason: Constipation Potassium Chloride (Klor Con Er Tab*) 10 meq PO BID [facility] Stop: 03/03/17 09:00 Warfarin Sodium (Coumadin Tab(*)) 8 mg PO ONCE@1700 ONE Stop: 03/02/17 17:01 Vital Signs 03/01/17 03/01/17 03/01/17 15:27 16:14 16:15 Temperature 98.6 F Pulse Rate 74 Respiratory 15 14 14 Rate Blood Pressure 106/57 (mmHg) O2 Sat by Pulse 100 Oximetry 03/01/17 03/01/17 03/01/17 16:27 18:15 18:42 Temperature Pulse Rate Respiratory 16 14 Rate Blood Pressure (mmHg) O2 Sat by Pulse 100 Oximetry 03/01/17 03/01/17 03/01/17 19:20 19:42 20:39 Temperature 99.5 F Pulse Rate 74 Respiratory 14 18 16 Rate Blood Pressure 106/51 (mmHg) O2 Sat by Pulse 98 98 Oximetry 03/01/17 03/01/17 03/01/17 23:41 23:49 23:50 Temperature 98.2 F Pulse Rate 90 Respiratory 16 16 14 Rate Blood Pressure 128/56 (mmHg) O2 Sat by Pulse 94 Oximetry 03/02/17 03/02/17 03/02/17 03:33 03:46 04:26 Temperature 98.1 F Pulse Rate 89 Respiratory 16 16 14 Rate Blood Pressure 125/82 (mmHg) O2 Sat by Pulse 97 Oximetry 03/02/17 03/02/17 03/02/17 06:26 06:27 07:30 Temperature 98.9 F Pulse Rate 93 Respiratory 16 16 17 Rate Blood Pressure 127/63 (mmHg) O2 Sat by Pulse 95 Oximetry 03/02/17 03/02/17 03/02/17 08:26 08:27 08:51 Temperature 98.1 F Pulse Rate 84 Respiratory 14 14 14 Rate Blood Pressure 126/55 (mmHg) O2 Sat by Pulse 95 Oximetry 03/02/17 03/02/17 03/02/17 09:07 09:30 10:05 Temperature 98.4 F Pulse Rate 78 Respiratory 14 16 18 Rate Blood Pressure 111/56 (mmHg) O2 Sat by Pulse 95 Oximetry 03/02/17 03/02/17 03/02/17 10:41 11:07 11:17 Temperature Pulse Rate Respiratory 18 14 Rate Blood Pressure (mmHg) O2 Sat by Pulse 95 Oximetry 03/02/17 03/02/17 03/02/17 11:18 11:30 12:31 Temperature Pulse Rate Respiratory 18 14 16 Rate Blood Pressure (mmHg) O2 Sat by Pulse 95 Oximetry 03/02/17 12:40 Temperature 97.6 F Pulse Rate 72 Respiratory 20 Rate Blood Pressure 120/58 (mmHg) O2 Sat by Pulse 100 Oximetry Oxygen Devices in Use Now: None Appearance: NAD, laying in bed Ears/Nose/Mouth/Throat: Mucous Membranes Moist Respiratory: Symmetrical Chest Expansion and Respiratory Effort, Clear to Auscultation Cardiovascular: NL Sounds; No Murmurs; No JVD, - - Heart rate irregular irregular Abdominal: NL Sounds; No Tenderness; No Distention Skin: - - Dressing to right knee clean, dry and intact Neurological: Alert and Oriented x 3, NL Muscle Strength and Tone Lines/Tubes/Other Access: Clean, Dry and Intact Peripheral IV - site benign Nutrition: Taking PO's Result Diagrams: 03/02/17 05:17 03/01/17 05:33 Assess/Plan/Problems-Billing Assessment: Ms. Gerardo is a 66 yo female with PMH significant for Afib, HTN and KATHARINE who presented to the hospital for an elective right total knee replacement with Dr. Coyle in 02/28/17. - Patient Problems (1) Status post total right knee replacement Code(s): Z96.651 - PRESENCE OF RIGHT ARTIFICIAL KNEE JOINT SNOMED Code(s): 7382691133728 Comment: - POD #2 - Management per Ortho - HH down today, will receive 2 units of RBC's per Ortho. - Continue to trend HH - Continue pain management, PT/OT, bowel regimen (2) Acute blood loss anemia Code(s): D62 - ACUTE POSTHEMORRHAGIC ANEMIA SNOMED Code(s): 599325917 Comment: - Secondary to surgery - Will receive 2 units of RBCs today - Continue to trend HH (3) Afib Code(s): I48.91 - UNSPECIFIED ATRIAL FIBRILLATION SNOMED Code(s): 83609842 Comment: - Heart rate irregular, rate controlled - Continue Lopressor (4) HTN (hypertension) Code(s): I10 - ESSENTIAL (PRIMARY) HYPERTENSION SNOMED Code(s): 68728229 Comment: - Normotensive, SBP 100-120's - Continue lopressor and dyazide (5) KATHARINE (obstructive sleep apnea) Code(s): G47.33 - OBSTRUCTIVE SLEEP APNEA (ADULT) (PEDIATRIC) SNOMED Code(s): 96177308 Comment: - Doesn't use CPAP at home, she is getting fit for an oral appliance (6) DVT prophylaxis Code(s): CGK5394 - SNOMED Code(s): 812803068 Comment: - Lovenox bridge to Warfarin per Ortho (7) Full code status Code(s): Z78.9 - OTHER SPECIFIED HEALTH STATUS SNOMED Code(s): 017292130 Status and Disposition: Inpatient. Disposition per Orthopedics. Thank you for this consultation, we will continue to follow along.
[2017-03-02] MEDS ORDERED: Warfarin TAB(*) 4 MG PO ONE (17:00)
[2017-03-02] MEDS: Ketorolac INJ* 30 MG/ML 1 ML VIAL IV PUSH PRN (19:50)
[2017-03-03] MEDS: oxyCODONE TAB* 5 MG TAB PO PRN ×3 (04:27→13:43)
[2017-03-03 06:29] LABS: Hematocrit 25 % (35-47); Hemoglobin 8.6 g/dl (12.0-16.0)
[2017-03-03] MEDS: Magnesium Oxide TAB* 400 MG PO SCH (09:23)
[2017-03-03] MEDS: oxyCODONE SR TAB(*) 10 MG TAB.SR PO SCH (09:23)
[2017-03-03] MEDS: Docusate CAP* 100 MG PO SCH (09:23)
[2017-03-03] MEDS: FLUoxetine CAP* 20 MG PO SCH (09:23)
[2017-03-03] MEDS: Metoprolol Tartrate TAB* 100 MG TAB PO SCH (09:23)
[2017-03-03] MEDS: Potassium Chlor TAB* 10 MEQ TAB.ER PO SCH (09:24)
[2017-03-03] MEDS: amLODIPine TAB* 5 MG PO SCH (09:24)
--- NOTE | 2017-03-03 10:21 | PN ---
Progress Note - Progress Note Date of Service: 03/03/17 SOAP: Subjective: 66 yo F pod 3 s/p RTKA by DR. Coyle. Patient c/o pain, currently taking long and short acting pain medication, discussed complications and how to titrate medications with patient and career development coordinator/teacher. Resting in bed comfortably, VSS, afebrile overnight. Objective: General- Well appearing, NAD AO MSK- dressing removed, incision c/d/i, minimal erythema around sutures, mild ecchymosis prox incision, minimal dried blood drainage seen, sutures intact. new dressing placed, career development coordinator/teacher shown how to do dressing. NVI, PT 2+ R side, + edema mild b/l Les, + DF/PF b/l. Vital Signs Temp 97.8 F 03/03/17 07:34 Pulse 73 03/03/17 07:34 Resp 16 03/03/17 09:24 BP 123/58 03/03/17 07:34 Pulse Ox 99 03/03/17 07:34 Intake & Output 03/02/17 03/03/17 03/03/17 18:59 06:59 18:59 Intake Total 2439 930 100 Output Total 400 550 Balance 2039 380 100 Intake: IV Fluids 429 LR 261 NS (0.9%) 168 Oral 1390 930 100 Packed Cells 620 NG Tube Irrigate Amount 0 Output: Urine 400 550 Assessment: 66 yo F pod 3 s/p RTKA by DR. Coyle. Plan: - DVT prophylaxis- coumadin, lovenox today. - D/C to home franky today, work with PT this AM - Long and short acting pain medications sent to home. - FOllow up with Dr. Coyle within 10-14 days. - H&H stable s/p 2 units. Active Medications Generic Name Dose Route Start Last Admin Trade Name Freq PRN Reason Stop Dose Admin Acetaminophen 650 mg 02/28/17 15:27 Tylenol Tab* PO Q4H PRN PAIN OR TEMPERATURE Amlodipine Besylate 2.5 mg 03/01/17 09:00 03/03/17 09:24 Norvasc Tab* PO 2.5 mg QAM [facility] Administration Bisacodyl 10 mg 02/28/17 15:27 Dulcolax Supp* [place] DAILY PRN constipation Cyclobenzaprine HCl 10 mg 03/01/17 11:04 03/02/17 06:26 Flexeril Tab* PO 10 mg TID PRN Administration muscle spasm Diphenhydramine HCl 12.5 mg 03/01/17 06:00 Benadryl Iv* IV Q6H PRN PRURITIS Docusate Sodium 100 mg 02/28/17 21:00 03/03/17 09:23 Colace Cap* PO 100 mg BID [facility] Administration Fluoxetine HCl 60 mg 03/01/17 09:00 03/03/17 09:23 Prozac Cap* PO 60 mg QAM [facility] Administration Hydromorphone HCl 0.5 mg 03/01/17 11:04 03/02/17 00:55 Dilaudid Iv* IV SLOW PU 0.5 mg Q4H PRN Administration PAIN Lactated Ringer's 1,000 mls @ 100 mls/hr 02/28/17 16:00 03/02/17 02:29 Lactated Ringers 1000 Ml Bag* IV 100 mls/hr PER RATE [facility] Administration Ketorolac Tromethamine 30 mg 03/01/17 11:07 03/02/17 19:50 Toradol Inj* IV PUSH 30 mg Q6H PRN Administration PAIN Lactulose 30 ml 02/28/17 15:27 03/02/17 15:16 Lactulose* PO 30 ml Q6H PRN Administration constipation Magnesium Hydroxide 30 ml 02/28/17 15:27 Milk Of Magnesia Liq* PO Q6H PRN constipation Magnesium Oxide 400 mg 03/01/17 09:00 03/03/17 09:23 Magox 400 Tab* PO 400 mg QAM [facility] Administration Metoprolol Tartrate 100 mg 02/28/17 21:00 03/03/17 09:23 Lopressor Tab* PO 100 mg BID [facility] Administration Ondansetron HCl 4 mg 03/01/17 06:00 Zofran Inj* IV Q6H PRN nausea Ondansetron HCl 4 mg 03/01/17 06:00 Zofran Tab* PO Q6H PRN NAUSEA Oxycodone HCl 10 mg 03/01/17 06:00 03/03/17 09:24 Roxycodone Tab* PO 10 mg Q4H PRN Administration SEVERE PAIN Oxycodone HCl 10 mg 03/01/17 09:00 03/03/17 09:23 Oxycontin(*) PO 10 mg BID [facility] Administration Oxycodone/Acetaminophen 1 tab 03/01/17 06:00 Percocet 5/325 Tab* PO Q3H PRN PAIN - MODERATE Oxycodone/Acetaminophen 2 tab 03/01/17 06:00 03/02/17 23:52 Percocet 5/325 Tab* PO 2 tab Q3HR PRN Administration PAIN - MODERATE Pharmacy Profile Note 1 note 03/01/17 17:00 03/02/17 16:51 Coumadin Daily Reminder* FOLLOW UP 1 note 1700 [facility] Administration Polyethylene Glycol/Electrolytes 17 gm 02/28/17 15:27 Miralax* PO DAILY PRN Constipation
[2017-03-03 11:19] VITALS: BP 141/72
--- NOTE | 2017-03-03 12:32 | PN ---
Subjective Date of Service: 03/03/17 Interval History: Patient seen and examined at bedside. Denies fever, chills, shortness of breath , chest discomfort, N/V/D. Pt feels that her pain control could be better. Family History: Unchanged from Admission Social History: Unchanged from Admission Past Medical History: Unchanged from Admission Objective Active Medications: Acetaminophen (Tylenol Tab*) 650 mg PO Q4H PRN Reason: PAIN OR TEMPERATURE Amlodipine Besylate (Norvasc Tab*) 2.5 mg PO QAM [facility] Bisacodyl (Dulcolax Supp*) 10 mg [place] DAILY PRN Reason: constipation Cyclobenzaprine HCl (Flexeril Tab*) 10 mg PO TID PRN Reason: muscle spasm Diphenhydramine HCl (Benadryl Iv*) 12.5 mg IV Q6H PRN Reason: PRURITIS Docusate Sodium (Colace Cap*) 100 mg PO BID [facility] Fluoxetine HCl (Prozac Cap*) 60 mg PO QAM [facility] Hydromorphone HCl (Dilaudid Iv*) 0.5 mg IV SLOW PU Q4H PRN Reason: PAIN Lactated Ringer's (Lactated Ringers 1000 Ml Bag*) 1,000 mls @ 100 mls/hr IV PER RATE [facility] Ketorolac Tromethamine (Toradol Inj*) 30 mg IV PUSH Q6H PRNReason: PAIN Lactulose (Lactulose*) 30 ml PO Q6H PRN Reason: constipation Magnesium Hydroxide (Milk Of Magnesia Liq*) 30 ml PO Q6H PRN Reason: constipation Magnesium Oxide (Magox 400 Tab*) 400 mg PO QAM [facility] Metoprolol Tartrate (Lopressor Tab*) 100 mg PO BID [facility] Ondansetron HCl (Zofran Inj*) 4 mg IV Q6H PRN Reason: nausea Ondansetron HCl (Zofran Tab*) 4 mg PO Q6H PRN Reason: NAUSEA Oxycodone HCl (Roxycodone Tab*) 10 mg PO Q4H PRN Reason: SEVERE PAIN Oxycodone HCl (Oxycontin(*)) 10 mg PO BID [facility] Oxycodone/Acetaminophen (Percocet 5/325 Tab*) 1 tab PO Q3H PRN Reason: PAIN - MODERATE Oxycodone/Acetaminophen (Percocet 5/325 Tab*) 2 tab PO Q3HR PRN Reason: PAIN - MODERATE Pharmacy Profile Note (Coumadin Daily Reminder*) 1 note FOLLOW UP 1700 [facility] Polyethylene Glycol/Electrolytes (Miralax*) 17 gm PO DAILY PRN Reason: Constipation Vital Signs 03/02/17 03/02/17 03/02/17 12:31 12:40 13:50 Temperature 97.6 F 97.9 F Pulse Rate 72 73 Respiratory 16 20 18 Rate Blood Pressure 120/58 121/65 (mmHg) O2 Sat by Pulse 100 96 Oximetry 03/02/17 03/02/17 03/02/17 14:31 15:08 15:50 Temperature 97.8 F Pulse Rate 77 Respiratory 16 16 16 Rate Blood Pressure 134/65 (mmHg) O2 Sat by Pulse 96 Oximetry 03/02/17 03/02/17 03/02/17 16:26 16:54 17:08 Temperature 98.1 F Pulse Rate 74 Respiratory 18 16 Rate Blood Pressure 141/68 (mmHg) O2 Sat by Pulse 96 95 Oximetry 03/02/17 03/02/17 03/02/17 20:21 20:29 20:56 Temperature 98.5 F Pulse Rate 76 Respiratory 17 18 17 Rate Blood Pressure 141/63 (mmHg) O2 Sat by Pulse 99 Oximetry 03/02/17 03/02/17 03/03/17 22:56 23:52 01:52 Temperature 98.4 F Pulse Rate 74 Respiratory 16 16 16 Rate Blood Pressure 122/58 (mmHg) O2 Sat by Pulse 98 Oximetry 03/03/17 03/03/17 03/03/17 03:52 04:27 06:27 Temperature 98.4 F Pulse Rate 64 Respiratory 16 16 16 Rate Blood Pressure 113/50 (mmHg) O2 Sat by Pulse 97 Oximetry 03/03/17 03/03/17 03/03/17 07:34 08:50 09:23 Temperature 97.8 F Pulse Rate 73 Respiratory 20 16 16 Rate Blood Pressure 123/58 (mmHg) O2 Sat by Pulse 99 99 Oximetry 03/03/17 03/03/17 09:24 11:07 Temperature 98.1 F Pulse Rate 79 Respiratory 16 18 Rate Blood Pressure 141/72 (mmHg) O2 Sat by Pulse 95 Oximetry Oxygen Devices in Use Now: None Appearance: NAD, laying in bed Ears/Nose/Mouth/Throat: Mucous Membranes Moist Respiratory: Symmetrical Chest Expansion and Respiratory Effort, Clear to Auscultation Cardiovascular: - - Heart rate irregular Abdominal: NL Sounds; No Tenderness; No Distention Extremities: - - 1-2+ right LE edema Skin: No Rash or Ulcers, - - Dressing to right knee clean, dry and intact Neurological: Alert and Oriented x 3, NL Muscle Strength and Tone Lines/Tubes/Other Access: Clean, Dry and Intact Peripheral IV - site benign Nutrition: Taking PO's Result Diagrams: 03/03/17 05:51 03/01/17 05:33 Assess/Plan/Problems-Billing Assessment: Ms. Gerardo is a 66 yo female with PMH significant for Afib, HTN and KATHARINE who presented to the hospital for an elective right total knee replacement with Dr. Coyle in 02/28/17. - Patient Problems (1) Status post total right knee replacement Code(s): Z96.651 - PRESENCE OF RIGHT ARTIFICIAL KNEE JOINT SNOMED Code(s): 5703525642722 Comment: - POD #3 - Management per Ortho - HH improved after 2 units of RBC's yesterday - Continue pain management, PT/OT, bowel regimen (2) Acute blood loss anemia Code(s): D62 - ACUTE POSTHEMORRHAGIC ANEMIA SNOMED Code(s): 563154187 Comment: - Secondary to surgery - Received 2 units of RBCs yesterday (3) Afib Code(s): I48.91 - UNSPECIFIED ATRIAL FIBRILLATION SNOMED Code(s): 20492697 Comment: - Heart rate irregular, rate controlled - Continue Lopressor (4) HTN (hypertension) Code(s): I10 - ESSENTIAL (PRIMARY) HYPERTENSION SNOMED Code(s): 89717645 Comment: - Normotensive, SBP 110-140's - Continue lopressor and dyazide (5) KATHARINE (obstructive sleep apnea) Code(s): G47.33 - OBSTRUCTIVE SLEEP APNEA (ADULT) (PEDIATRIC) SNOMED Code(s): 41466866 Comment: - Doesn't use CPAP at home, she is getting fit for an oral appliance (6) DVT prophylaxis Code(s): RVP7374 - SNOMED Code(s): 831580465 Comment: - Warfarin per Ortho (7) Full code status Code(s): Z78.9 - OTHER SPECIFIED HEALTH STATUS SNOMED Code(s): 135065432 Status and Disposition: Inpatient. Disposition per Orthopedics. Plan for possible discharge to home today. Thank you for this consultation, we will sign off at this time.
[2017-03-03] MEDS ORDERED: oxyCODONE TAB* 5 MG TAB PO ONE (14:00)
== END 2017-03-03 18:32 | disposition home health service (06) | DRG 470 ==
LOC: AA 02-28 10:04 → SSU 02-28 15:27
PROVIDERS: ADMIT Orthopaedic Surgery Adult Reconstructive Orthopaedic Surgery; ATTEND Orthopaedic Surgery Adult Reconstructive Orthopaedic Surgery
PROC: 0SRC0J9 Replacement of Right Knee Joint with Synthetic Substitute, Cemented, Open Approach (ICD-10-PCS; principal; 2017-02-28 13:00)
PROC: 30233N1 Transfusion of Nonautologous Red Blood Cells into Peripheral Vein, Percutaneous Approach (ICD-10-PCS; 2017-03-02)
DX: M17.11 Unilateral primary osteoarthritis, right knee (principal); I48.91 Unspecified atrial fibrillation; D62 Acute posthemorrhagic anemia; I10 Essential (primary) hypertension; M25.761 Osteophyte, right knee; G47.33 Obstructive sleep apnea (adult) (pediatric); E66.01 Morbid (severe) obesity due to excess calories; Z68.34 Body mass index [BMI] 34.0-34.9, adult; Z88.6 Allergy status to analgesic agent; Z91.040 Latex allergy status; Z82.49 Family history of ischemic heart disease and other diseases of the circulatory system; Z72.89 Other problems related to lifestyle
CPT/HCPCS: 36415; 80048; 85014; 85018; 85025; 85610; 86850; 86900; 86901; 86922; 88305; 88311; 94760; A9270-GY; C1776; J0690; J1100; J1170; J1650; J1885; J2250; J2270; J2300; J2704; J2795; P9040

== ENCOUNTER 2018-03-06 07:49 | Inpatient (IN) | payer MEDICARE ==
--- NOTE | 2018-02-23 14:07 | HP ---
AMENDED REPORT NOW INCLUDES COSIGNER DESIGNATION - ESIGNED BEFORE ADJUSTMENT HISTORY AND PHYSICAL: DATE OF ADMISSION/SURGERY: 03/06/18 DATE OF OFFICE VISIT: 02/23/18 ATTENDING SURGEON: Karely Coyle MD * (DICTATED BY FANTASMA ALAMO) PROCEDURE: Left total knee arthroplasty. CHIEF COMPLAINT: Left knee pain. HISTORY OF PRESENT ILLNESS: Ms. Gerardo is a 67-year-old female, who complains of left knee pain secondary to end-stage osteoarthritis. She has failed conservative treatment and elected to proceed with a left total knee arthroplasty, which is scheduled for 03/06/18. PAST MEDICAL HISTORY: AFib, sleep apnea, depression, anxiety, vitamin D deficiency, pulmonary hypertension, and anemia. PAST SURGICAL HISTORY: Lumbar spine surgery, tonsillectomy, , laparotomy, right knee scope, left knee scope, I and D of the left knee x2, right total knee arthroplasty, and sinus surgery. CURRENT MEDICATIONS: 1. Vitamin D. 2. Amlodipine 2.5 mg daily. 3. Magnesium. 4. Percocet as needed. 5. Fluoxetine 20 mg 3 capsules daily. 6. Folic acid. 7. Aspirin 81 mg daily. 8. Triamterene/hydrochlorothiazide 37.5/25 mg daily. 9. Metoprolol 100 mg twice a day. ALLERGIES: To LATEX. FAMILY HISTORY: Diabetes, stroke, Alzheimer's, ME, COPD, breast and laryngeal cancer. SOCIAL HISTORY: She is a 67-year-old female, she lives alone. She does not smoke or use drugs. Uses occasional alcohol. REVIEW OF SYSTEMS: A complete 14-point review of systems was reviewed with the patient and was positive for anemia. She denies history of DVT, PE, hepatitis, HIV, or anesthesia problems. PHYSICAL EXAMINATION GENERAL: She is well developed, well nourished. No acute distress. VITAL SIGNS: The patient is 5 feet 9 inches tall, weighs 240 pounds. Blood pressure 120/84 and heart rate 60. HEENT: Normocephalic, atraumatic. NECK: Supple. No palpable lymph nodes. PULMONARY: The lungs are clear to auscultation bilaterally. CARDIAC: Regular rate and rhythm. Strong S1, S2. ABDOMEN: Soft, nontender, nondistended. NEUROLOGIC: She is alert and oriented x3. MUSCULOSKELETAL: Left lower extremity: The skin is intact. There are no open wounds or abrasions. There is moderate joint effusion. Range of motion is 15 to 120 degrees of flexion. There is a 15- to 20-degree valgus deformity. There is MCL laxity. 2+ dorsalis pedis pulses, intact sensation, and her lower extremity muscle group strengths are intact at 5/5. ASSESSMENT AND PLAN: Ms. Gerardo is 67-year-old female with severe end-stage osteoarthritis of the left knee. She has failed conservative treatment and elected to proceed with a left total knee arthroplasty, which is scheduled for 03/06/[address] Coyle discussed the risks and benefits of the surgery at today's visit and all of her questions were answered. She will follow with Dr. Coyle 2 weeks after the surgery. FANTASMA ALAMO [id number]/[facility] #: [id number] JOSE M
[~2018-03-06 07:49] MED LIST: Buffered Lidocaine 0.9% SYRIN* 5 ML/SYR SYRINGE INTRADERM ONE; Dexamethasone TAB* 4 MG PO ONE; DiMENhydriNATE IV* 50 MG/ML VIAL IV PUSH PRN; Famotidine IV* 10 MG/ML 2 ML (20 mg) IV ONE; Gabapentin CAP(*) 300 MG PO ONE; Morphine INJ* 2 MG/ML 1 ML SYRINGE (TWO MG - NEW SYRINGE VERSION) IV PRN; Naloxone* 0.4 MG/ML 1 ML VIAL IV PRN; Ondansetron TAB* 4 MG PO ONE; PROCHLORPERAZINE INJ 5 MG/ML 2 ML VIAL IV PRN; Scopolamine 1.5 mg* PATCH TRANSDERM PRN
--- OUTSIDE RECORDS SUMMARY | 2018-03-06 07:54 | XMS REPORT ---
:1950 External Reference #:[id number] Author Organization [facility] [facility] Address [address] [place] [address] [place] [address] Phone [phone] Care Team Providers Name Role Phone Romelia Barrios MD Primary Care Physician Unavailable Payers Type Date Identification Numbers Payment Provider Subscriber Medicare Primary Policy Number: [id number] Medicare Nini Gerardo PayID: [id number] [address] [place] [address] [facility] Part B Effective: Policy Number: Aarp/United Nini Mcneil 2016 [id number] [facility] Humaira PayID: [id number] [address] [place] [address] Problems Date Description Provider Status Onset: 12/06/2013 Atrial fibrillation Alexi Collins M.D., Active OMI DANIEL Onset: 12/23/2015 Localized, primary osteoarthritis Karely Coyle M.D. Active Onset: 05/04/2016 Paroxysmal atrial fibrillation Alexi Collins M.D., Active OMI DANIEL Onset: 05/19/2017 Arthroplasty of knee Karely Coyle M.D. Active Onset: 05/19/2017 Aftercare following joint Karely Coyle M.D. Active replacement surgery Onset: 12/01/2017 Acquired genu valgum Karely Coyle M.D. Active Onset: 02/13/2018 Thoracic aortic ectasia Alexi Collins M.D., Active OMI DANIEL Family History Date Family Member(s) Problem(s) Comments General fam hx father [place] at 52 (still living, now 86), HtN Mother HTN, Alzheimers Social History Type Date Description Comments Lives With Alone Occupation Retired ETOH Use Occasionally consumes liquor Smoking Patient has never smoked Daily Caffeine Consumes on average 1 cup of regular coffee per day Exercise Type/Frequency Exercises sporadically Allergies, Adverse Reactions, Alerts Date Description Reaction Status Severity Comments 12/06/2013 NKDA active 12/23/2015 Latex active Medications Medication Date Status Form Strength Qnty SIG Indications Ordering Provider Amoxicillin 12/05/ Active Capsules 500mg 16caps take 4 Karely 2017 tablets by Leonides, mouth 1 M.D. hour prior to dental work. Aspirin / Active Tablets 81mg 1 by mouth Blegen, 0000 every day MD Romelia Triamterene/H / Active Capsules 37.5-25mg 30caps 1 by mouth Blegen, ydrochlorothi 0000 every day kam León MD Folate / Active 1mg 1 po qd Unknown 0000 Vit D / Active 2000mg 1 po every Unknown 0000 other day Metoprolol / Active Tablets 100mg 180tab 1 by mouth Blegen, Tartrate 0000 s twice a day MD Romelia Magnesium / Active Capsules 400mg 2 cap po Unknown 0000 daily Fluoxetine / Active Tablets 60mg 1 by mouth Unknown HCL 0000 every day Amlodipine / Active Tablets 2.5mg 1 by mouth Unknown Besylate 0000 every day Voltaren 05/19/ Hx Gel 1% 300gm apply 4 Z47.1 Karely 2016 - grams Leonides, 12/14/ topically M.D. 2017 to affected knee up to four times a day, max 16 grams daily Oxycodone HCL 03/03/ Hx Capsules 5mg 90caps 1-2 tablets Karely 2016 - every 4 Leonides, 11/14/ hours as M.D. 2018 needed for pain Oxycodone HCL 03/03/ Hx Tab ER 12H 10mg 40tabs oxycontin Karely ER 2017 - Abuse-Det 10mg tablet Leonides, 11/14/ every 12 M.D. 2018 hours Warfarin 02/20/ Hx Tablets 2mg 90tabs take 1-3 Karely Sodium 2017 - tabs by Leonides, 12/14/ mouth at M.D. 2018 5pm nightly Oxycodone-Gilbert 02/20/ Hx Tablets 5-325mg 90tabs 1-2 tabs by Karely alexander 2016 - mouth every Leonides, 02/22/ 8 hours as M.D. 2018 needed for pain. Colace 02/20/ Hx Capsules 100mg 90caps 1 tab by Karely 2016 - mouth 2-3 Leonides, 12/14/ times a day M.D. 2018 as needed Oxycodone-Gilbert 10/13/ Hx Tablets 5-325mg 40tabs 1 by mouth Dirk taminophen 2014 - every 6 Lisa, 11/14/ hours as M.D. 2018 needed pain Prozac / Hx Capsules 20mg 3 by mouth Blegen, 0000 - every day Romelia 12/21/ 2015 Vicodin ES / Hx Unknown 0000 - 2014 Medications Administered in Office Medication Date Status Form Strength Qnty SIG Indications Ordering Provider Inj, Administered Injection Alexi Raygoza Regadenoson, 017 Collins, 0.1 MG M.D., FACC, FASNC Technetium TC Administered Injection Alexi Raygoza 99M 017 Collins, Tetrofosmin, VinayakDJonn, FACC, Per Unit Dose FASNC Up To 40 Millicuries Depomedrol Administered Injection Karely 40MG 016 Wilda Coyle Depomedrol Administered Injection Karely 40MG 016 Wilda Coyle Depomedrol Administered Injection Dirk Lisa, 80MG 014 M.D. Inj, Administered Injection Archie DJonn Regadenoson, 014 Wilda Rey 0.1 MG Inj, Administered Injection Kemi Regadenoson, 014 [place], 0.1 MG M.D. Technetium TC Administered Injection Archie DJonn 99M 014 Wilda Rey Tetrofosmin, Per Unit Dose Up To 40 Millicuries Technetium TC Administered Injection Kemi 99M 014 Amish, Tetrofosmin, M.D. Per Unit Dose Up To 40 Millicuries Vital Signs Date Vital Result Comment 02/23/2018 Height 69.5 inches 5'9.50" Weight 245.00 lb Heart Rate 60 /min BP Systolic 120 mmHg BP Diastolic 84 mmHg BMI (Body Mass Index) 35.7 kg/m2 02/13/2018 Height 69.5 inches 5'9.50" Heart Rate 68 /min BP Systolic Sitting 104 mmHg Rue lg cuff BP Diastolic Sitting 70 mmHg Rue lg cuff BP Systolic Standing 108 mmHg Rue BP Diastolic Standing 70 mmHg Rue Respiratory Rate 16 /min Ejection Fraction 55-60% as of 04/2017 echo 12/01/2017 Height 69.5 inches 5'9.50" Heart Rate 65 /min BP Systolic 122 mmHg BP Diastolic 82 mmHg Respiratory Rate 16 /min Body Temperature 97.6 F Pain Level 4 05/19/2017 Height 69.5 inches 5'9.50" Weight 220.00 lb BP Systolic 120 mmHg BP Diastolic 82 mmHg Body Temperature 97.8 F Pain Level 4 BMI (Body Mass Index) 32.0 kg/m2 04/07/2017 Height 69.5 inches 5'9.50" Weight 220.00 lb Heart Rate 67 /min BP Systolic 126 mmHg BP Diastolic 81 mmHg Pain Level 3 BMI (Body Mass Index) 32.0 kg/m2 03/13/2017 Height 69 inches 5'9" Weight 225.00 lb BP Systolic 119 mmHg BP Diastolic 72 mmHg Body Temperature 97.9 F Pain Level 6 BMI (Body Mass Index) 33.2 kg/m2 02/20/2017 Height 69 inches 5'9" Weight 225.00 lb Heart Rate 55 /min BP Systolic 123 mmHg BP Diastolic 88 mmHg Body Temperature 97.2 F BMI (Body Mass Index) 33.2 kg/m2 01/17/2017 Height 69.5 inches 5'9.50" Weight 227.00 lb per pt, refused weight in office Heart Rate 64 /min BP Systolic Sitting 126 mmHg Lue reg cuff BP Diastolic Sitting 84 mmHg Lue reg cuff BP Systolic Standing 124 mmHg Lue BP Diastolic Standing 86 mmHg Lue Respiratory Rate 14 /min BMI (Body Mass Index) 33.0 kg/m2 Ejection Fraction 55-60% 05/03/16 09/28/2016 Height 69.5 inches 5'9.50" Weight 239.00 lb Heart Rate 68 /min BP Systolic 126 mmHg BP Diastolic 80 mmHg Respiratory Rate 16 /min Pain Level 7 BMI (Body Mass Index) 34.8 kg/m2 06/27/2016 Height 69.5 inches 5'9.50" Weight 239.00 lb Respiratory Rate 17 /min Body Temperature 98.7 F Pain Level 5 BMI (Body Mass Index) 34.8 kg/m2 05/04/2016 Height 69.5 inches 5'9.50" Weight 239.50 lb with sandals Heart Rate 58 /min BP Systolic Sitting 142 mmHg Ra reg cuff BP Diastolic Sitting 88 mmHg Ra reg cuff BP Systolic Standing 138 mmHg Ra reg cuff BP Diastolic Standing 82 mmHg Ra reg cuff Respiratory Rate 16 /min BMI (Body Mass Index) 34.9 kg/m2 Ejection Fraction 55-60% 05/03/2016 12/23/2015 Height 69.5 inches 5'9.50" Weight 258.00 lb Heart Rate 60 /min BP Systolic 147 mmHg BP Diastolic 91 mmHg BMI (Body Mass Index) 37.5 kg/m2 04/15/2015 Height 69.5 inches 5'9.50" Weight 235.00 lb per patient Heart Rate 58 /min BP Systolic Sitting 142 mmHg left arm, reg cuff BP Diastolic Sitting 96 mmHg left arm, reg cuff BP Systolic Standing 136 mmHg left arm, reg cuff BP Diastolic Standing 92 mmHg left arm, reg cuff Respiratory Rate 16 /min BMI (Body Mass Index) 34.2 kg/m2 12/01/2014 Height 69.5 inches 5'9.50" Weight 230.00 lb Pain Level 4 BMI (Body Mass Index) 33.5 kg/m2 10/13/2014 Height 69 inches 5'9" Heart Rate 61 /min BP Systolic 106 mmHg BP Diastolic 58 mmHg Body Temperature 97.4 F 09/03/2014 Height 69 inches 5'9" Weight 230.00 lb Pain Level 8 BMI (Body Mass Index) 34.0 kg/m2 06/11/2014 Height 69.5 inches 5'9.50" Heart Rate 60 /min BP Systolic 138 mmHg BP Diastolic 79 mmHg 04/23/2014 Height 69.5 inches 5'9.50" Weight 230.00 lb Heart Rate 73 /min BP Systolic 137 mmHg BP Diastolic 97 mmHg BMI (Body Mass Index) 33.5 kg/m2 04/01/2014 Height 69.50 inches 5'9.50" Weight 231.00 lb with shoes Heart Rate 76 /min BP Systolic Sitting 110 mmHg Ra reg cuff BP Diastolic Sitting 78 mmHg Ra reg cuff BP Systolic Standing 118 mmHg Ra reg cuff BP Diastolic Standing 70 mmHg Ra reg cuff Respiratory Rate 16 /min BMI (Body Mass Index) 33.6 kg/m2 12/06/2013 Height 69.5 inches 5'9.50" Weight 230.00 lb Heart Rate 72 /min BP Systolic 128 mmHg left, reg cuff BP Diastolic 78 mmHg left, reg cuff BP Systolic Sitting 124 mmHg right BP Diastolic Sitting 84 mmHg right BP Systolic Standing 132 mmHg right BP Diastolic Standing 84 mmHg right BMI (Body Mass Index) 33.5 kg/m2 Results Test Date Test Result H/L Range Note Urine Culture And 02/15/2017 Urine Culture SEE RESULT BELOW 1 Sensitivities CBC Auto Diff 02/15/2017 White Blood Count 5.6 10^3/uL 3.5-10.8 Red Blood Count 4.02 10^6/uL 4.0-5.4 Hemoglobin 13.3 g/dL 12.0-16.0 Hematocrit 40 % 35-47 Mean Corpuscular Volume 100 fL High 80-97 Mean Corpuscular Hemoglobin 33 pg High 27-31 Mean Corpuscular HGB Conc 33 g/dL 31-36 Red Cell Distribution Width 14 % 10.5-15 Platelet Count 193 10^3/uL 150-450 Mean Platelet Volume 9 um3 7.4-10.4 Abs Neutrophils 2.9 10^3/uL 1.5-7.7 Abs Lymphocytes 2.2 10^3/uL 1.0-4.8 Abs Monocytes 0.5 10^3/uL 0-0.8 Abs Eosinophils 0 10^3/uL 0-0.6 Abs Basophils 0.1 10^3/uL 0-0.2 Abs Nucleated RBC 0 10^3/uL Granulocyte % 50.6 % 38-83 Lymphocyte % 39.6 % 25-47 Monocyte % 8.2 % 1-9 Eosinophil % 0.6 % 0-6 Basophil % 1.0 % 0-2 Nucleated Red Blood Cells % 0.1 Laboratory test finding 02/15/2017 Vitamin D Total 25(Oh) 55.3 ng/mL High 30-50 Comp Metabolic Panel 02/15/2017 Sodium 138 mmol/L 133-145 Potassium 4.2 mmol/L 3.5-5.0 Chloride 102 mmol/L 101-111 Co2 Carbon Dioxide 30 mmol/L 22-32 Anion Gap 6 mmol/L 2-11 Glucose 80 mg/dL 70-100 Blood Urea Nitrogen 19 mg/dL 6-24 Creatinine 1.08 mg/dL High 0.51-0.95 BUN/Creatinine Ratio 17.6 8-20 Calcium 10.0 mg/dL 8.6-10.3 Total Protein 6.6 g/dL 6.4-8.9 Albumin 4.4 g/dL 3.2-5.2 Globulin 2.2 g/dL 2-4 Albumin/Globulin Ratio 2.0 1-3 Total Bilirubin 0.60 mg/dL 0.2-1.0 Alkaline Phosphatase 59 U/L 34-104 Alt 10 U/L 7-52 Ast 18 U/L 13-39 Egfr Non- 50.9 >60 Egfr 65.5 >60 2 Inr/Protime 02/15/2017 Inr 0.85 Low 0.89-1.11 Laboratory test finding 02/15/2017 Partial Thrombo Time 35.6 seconds 26.0 -36.3 PTT Type & Screen 02/15/2017 Patient Blood Type B Positive Antibody Screen NEGATIVE Urinalysis Profile 02/15/2017 Urine Color Yellow Urine Appearance Clear Urine Specific [place] 1.013 1.010-1.030 Urine pH 7.0 5-9 Urine Urobilinogen Negative Negative Urine Ketones Negative Negative Urine Protein Negative Negative Urine Leukocytes Negative Negative Urine Blood Negative Negative Urine Nitrite Negative Negative Urine Bilirubin Negative Negative Urine Glucose Negative Negative Laboratory test finding 09/28/2016 C Reactive Protein 2.92 mg/L < 5.00 3 Erythrocyte Sed Rate 39 mm/Hr High 0-30 CBC Auto Diff 09/28/2016 White Blood Count 5.8 10^3/uL 3.5-10.8 Red Blood Count 4.02 10^6/uL 4.0-5.4 Hemoglobin 13.5 g/dL 12.0-16.0 Hematocrit 41 % 35-47 Mean Corpuscular Volume 101 fL High 80-97 Mean Corpuscular Hemoglobin 34 pg High 27-31 Mean Corpuscular HGB Conc 33 g/dL 31-36 Red Cell Distribution Width 13 % 10.5-15 Platelet Count 170 10^3/uL 150-450 Mean Platelet Volume 9 um3 7.4-10.4 Abs Neutrophils 3.0 10^3/uL 1.5-7.7 Abs Lymphocytes 2.0 10^3/uL 1.0-4.8 Abs Monocytes 0.6 10^3/uL 0-0.8 Abs Eosinophils 0 10^3/uL 0-0.6 Abs Basophils 0.1 10^3/uL 0-0.2 Abs Nucleated RBC 0.01 10^3/uL Granulocyte % 51.9 % 38-83 Lymphocyte % 35.5 % 25-47 Monocyte % 10.4 % High 1-9 Eosinophil % 0.7 % 0-6 Basophil % 1.5 % 0-2 Nucleated Red Blood Cells % 0.1 Surgical Pathology 10/02/2014 S RUN DATE: 10/03/ <SEE NOTE> 4 Comp Metabolic Panel 09/23/2014 Sodium 134 mmol/L 133-145 Potassium 4.5 mmol/L 3.5-5.0 Chloride 99 mmol/L Low 101-111 Co2 Carbon Dioxide 30 mmol/L 22-32 Anion Gap 5 mmol/L 2-11 Glucose 96 mg/dL 70-100 Blood Urea Nitrogen 14 mg/dL 6-24 Creatinine 1.10 mg/dL High 0.51-0.95 BUN/Creatinine Ratio 12.7 8-20 Calcium 10.0 mg/dL 8.6-10.3 Total Protein 6.5 g/dL 6.4-8.9 Albumin 4.3 g/dL 3.2-5.2 Globulin 2.2 g/dL 2-4 Albumin/Globulin Ratio 2.0 1-3 Total Bilirubin 0.60 mg/dL 0.2-1.0 Alkaline Phosphatase 65 U/L 34-104 Alt 10 U/L 7-52 Ast 19 U/L 13-39 Egfr Non- 50.3 >60 Egfr 64.7 >60 5 Laboratory test finding 09/23/2014 Magnesium 1.8 mg/dL Low 1.9-2.7 CBC Auto Diff 09/23/2014 White Blood Count 5.4 10^3/uL 4.8-10.8 Red Blood Count 3.77 10^6/uL Low 4.0-5.4 Hemoglobin 12.5 g/dL 12.0-16.0 Hematocrit 38 % 35-47 Mean Corpuscular Volume 100 fL High 80-97 Mean Corpuscular Hemoglobin 33 pg High 27-31 Mean Corpuscular HGB Conc 33 g/dL 31-36 Red Cell Distribution Width 15 % 10.5-15 Platelet Count 215 10^3/uL 150-450 Mean Platelet Volume 9 um3 7.4-10.4 Abs Neutrophils 2.4 10^3/uL 1.5-7.7 Abs Lymphocytes 2.4 10^3/uL 1.0-4.8 Abs Monocytes 0.4 10^3/uL 0-0.8 Abs Eosinophils 0.1 10^3/uL 0-0.6 Abs Basophils 0.1 10^3/uL 0-0.2 Abs Nucleated RBC 0.01 10^3/uL Granulocyte % 44.8 % 38-83 Lymphocyte % 44.0 % 25-47 Monocyte % 8.0 % 1-9 Eosinophil % 1.8 % 0-6 Basophil % 1.4 % 0-2 Nucleated Red Blood Cells % 0.3 Retic Count 09/23/2014 Retic Count 2.3 % High 0.5-1.5 Corrected Retic Count 1.9 % High 0.5-1.5 Maturation Factor Retic 1.5 Retic Index 1.30 Mean Retic Volume 116.7 Immature Retic Fraction 0.58 RBC Retic Count 3.77 10^6/uL Low 4.6-6.2 Hematocrit for Retic CNT 38 % 35-47 Laboratory test finding 05/01/2014 Magnesium 1.6 mg/dL Low 1.9-2.7 Erythrocyte Sed Rate 42 mm/Hr High 0-30 Cyclic Citrullinated Pept IgG <15.6 U 6 Rheumatoid Factor <15 IU/mL <15 7 Basic Metabolic Panel 04/01/2014 Sodium 137 mmol/L 133-145 Potassium 4.2 mmol/L 3.7-5.6 Chloride 101 mmol/L 101-111 Co2 Carbon Dioxide 30 mmol/L 22-32 Anion Gap 6 mmol/L 2-11 Glucose 86 mg/dL 70-100 Blood Urea Nitrogen 25 mg/dL High 6-24 Creatinine 1.07 mg/dL High 0.51-0.95 BUN/Creatinine Ratio 23.4 High 8-20 Calcium 9.9 mg/dL 8.6-10.3 Egfr Non- 52.0 >60 Egfr 66.8 >60 8 Laboratory test finding 04/01/2014 Magnesium 1.6 mg/dL Low 1.9-2.7 Laboratory test finding 02/11/2014 Magnesium 1.8 mg/dL Low 1.9-2.7 1 SEE RESULT BELOW Name: NINI GERARDO : [address]: Karely Coyle MD Acct: [id number] Unit: [id number] AGE: 66 Location: [facility] Re02/15/17 SEX: F Status: REG REF SPEC: [id number] KAYLEEN: 02/15/17-1135 [facility] [place] DR: Karely Coyle MD REQ: [id number] RECD: 02/15/17120 STATUS: YAKELIN ENNIS DR: Romelia Barrios MD _ SOURCE: URINE SPDESC: ORDERED: Urine Culture QUERIES: Urine Source: Clean Catch Procedure Result Reported Site Urine Culture Final 02/16/17- 1245 ML No Growth (<1,000 CFU/mL) * ML - [facility] ([facility]) . END OF REPORT * ML=Testing performed at Main Lab DEPARTMENT OF PATHOLOGY, [address] [place] [id number] Hector Wyatt M.D. Director [facility] # [id number] 2 Because ethnic data is not always readily available, this report includes an eGFR for both -Americans and non- Americans. The National Kidney Disease Education Program (NKDEP) does not endorse the use of the MDRD equation for patients that are not between the ages of 18 and 70, are , have extremes of body size, muscle mass, or nutritional status, or are non- or non-. According to the National Kidney Foundation, irrespective of diagnosis, the stage of the disease is based on the level of kidney function: Stage Description GFR(mL/min/1.73 m(2)) 1 Kidney damage with normal or decreased GFR 90 2 Kidney damage with mild decrease in GFR 60-89 3 Moderate decrease in GFR 30-59 4 Severe decrease in GFR 15-29 5 Kidney failure <15 (or dialysis) 3 Acute inflammation: >10.00 4 RUN DATE: 10/03/14 [facility] LAB LIVE PAGE 1 RUN TIME: [address] [place] [address] Specimen Inquiry Name: NINI GERARDO : [address]: All Gonzalez MD Acct: [id number] Unit: [id number] AGE: 63 Location: [place] Re10/02/14 SEX: F Status: REG [facility] SPEC: [id number] KAYLEEN: 10/02/14- [facility] [place] DR: All Gonzalez MD REQ: [id number] RECD: 10/02/14 STATUS: SOUT _ ORDERED: LEVEL III FINAL DIAGNOSIS Knee, right, shavings: -- Fibrocartilage fragments with neovascularization and myxoid change. -- Hyperplastic synovium with fibrosis and neovascularization -- Fragments of articular cartilage with moderate to severe degenerative features. PRE-OPERATIVE DIAGNOSIS Arthritis, lateral meniscus tear right knee GROSS DESCRIPTION The specimen is received in formalin labeled, Shavings Right Knee, and consists of a 3.6 x 3.6 x 1.1 cm aggregate of yellow and white tissue fragments. Armhole Raiser Lockstitch sections, one cassette. Signed (signature on file) Hector Wyatt MD 1010 END OF REPORT * ML=Testing performed at Main Lab DEPARTMENT OF PATHOLOGY, [address] [place] [address] Hector Wyatt M.D. Director [facility] # [id number] 5 Because ethnic data is not always readily available, this report includes an eGFR for both -Americans and non- Americans. The National Kidney Disease Education Program (NKDEP) does not endorse the use of the MDRD equation for patients that are not between the ages of 18 and 70, are , have extremes of body size, muscle mass, or nutritional status, or are non- or non-. According to the National Kidney Foundation, irrespective of diagnosis, the stage of the disease is based on the level of kidney function: Stage Description GFR(mL/min/1.73 m(2)) 1 Kidney damage with normal or decreased GFR 90 2 Kidney damage with mild decrease in GFR 60-89 3 Moderate decrease in GFR 30-59 4 Severe decrease in GFR 15-29 5 Kidney failure <15 (or dialysis) 6 REFERENCE VALUE <20.0 (Negative) Test Performed by: [place] [address] Private Tutor: Odin Aly M.D. 7 Test Performed by: [place] [address] Private Tutor: Odin Aly M.D. 8 Because ethnic data is not always readily available, this report includes an eGFR for both -Americans and non- Americans. The National Kidney Disease Education Program (NKDEP) does not endorse the use of the MDRD equation for patients that are not between the ages of 18 and 70, are , have extremes of body size, muscle mass, or nutritional status, or are non- or non-. According to the National Kidney Foundation, irrespective of diagnosis, the stage of the disease is based on the level of kidney function: Stage Description GFR(mL/min/1.73 m(2)) 1 Kidney damage with normal or decreased GFR 90 2 Kidney damage with mild decrease in GFR 60-89 3 Moderate decrease in GFR 30-59 4 Severe decrease in GFR 15-29 5 Kidney failure <15 (or dialysis) Procedures Date CPT Code Description Status 02/13/2018 79135 EKG Tracing & Interpretation Completed 05/29/2017 46239 ECHO Transthoracic, Real-Time 2D With Doppler And Color Completed Flow 05/29/2017 92223 ECHO Transthoracic, Real-Time 2D With Doppler And Color Completed Flow 02/28/2017 68360 TKR Total Knee Replacement Completed 02/28/2017 65033 TKR Total Knee Replacement Completed 01/17/2017 82181 EKG Tracing & Interpretation Completed 01/09/2017 51634 Stress Test Completed 01/09/2017 87047 Myocardial Perfusion Imaging Tomographic (Spect) Completed Multiple Studies 06/27/2016 31439 Inject/Drain Joint/Bursa Major W/O US Completed 05/04/2016 06910 EKG Tracing & Interpretation Completed 05/03/2016 93639 ECHO Transthoracic, Real-Time 2D With Doppler And Color Completed Flow 04/15/2015 03990 EKG Tracing & Interpretation Completed 04/10/2015 65261 ECHO Transthoracic, Real-Time 2D With Doppler And Color Completed Flow 10/02/2014 39043 Arthroscopy,Knee,Meniscectomy Media & Lateral Completed 10/02/2014 61007 Arthroscopy,Knee,Meniscectomy Media & Lateral Completed 10/02/2014 10359 Arthroscopy, Knee,Surgical;Debridement/Shaving Completed Articular Cartldg 04/23/2014 92625 Xray Knee 3 Views Completed 04/23/2014 66213 Xray Knee 3 Views Completed 04/23/2014 27938 Inject/Drain Joint/Bursa Major W/O US Completed 03/18/2014 49126 Stress Test Completed 03/18/2014 72516 Myocardial Perfusion Imaging Tomographic (Spect) Completed Multiple Studies 03/18/2014 53904 Myocardial Perfusion Imaging Tomographic (Spect) Completed Multiple Studies 02/11/2014 74867 ECHO Transthoracic, Real-Time 2D With Doppler And Color Completed Flow 02/05/2014 23926 Holter Monitoring 24 HR New Completed 12/06/2013 81964 EKG Tracing & Interpretation Completed Encounters Type Date Location Provider CPT E/M Dx Office Visit 02/13/2018 [facility] Alexi Collins, 8[address]06 I77.810 1:30p Nichelle Astudillo, [facility] M17.12 Z01.810 I48.0 Office Visit 12/01/2017 12:45p [facility] Karely Coyle M.D. 77826 M17.12 [facility] M21.062 E66.01 Z96.651 M25.561 M25.562 M25.462 Office Visit 03/03/2017 [facility] Olena Kuhn, 51388 I48.91 1:01p Assoc,pc [employer] [facility] Z96.641 I10 Office Visit 03/02/2017 [facility] Olena Kuhn, 16081 I48.91 1:01p Assoc,pc [employer] [facility] Z96.641 I10 Office Visit 03/01/2017 [facility] Olena Kuhn, 89778 I48.91 1:00p Assoc,pc [employer] [facility] Z96.641 I10 Office Visit 02/28/2017 12:59p [facility] Bryn Daigle, 60573 Z96.641 Assoc,pc Hospitalists N.P. I48.91 I10 Office Visit 01/17/2017 2:00p [facility] Aleximonica Collins, 91910 I48.0 Nichelle Astudillo, [facility] M17.11 Z01.810 Office Visit 09/28/2016 11:30a [facility] C[facility] M.D. 12565 M25.561 C.[facility] M25.562 M17.0 Office Visit 05/04/2016 11:30a [facility] Alex[facility] Collins, 18559 I48.0 Nichelle Astudillo, [facility] Office Visit 12/23/2015 8:00a [facility] Coyle M.D. 99127 M25.562 C.M.A. M25.561 M17.0 E66.01 Z68.37 Office Visit 04/15/2015 11:15a [facility] Aleximonica Collins, 64860 427.31 Material Mixer [facility] Wilda, [facility] Office Visit 06/11/2014 12:45p [facility] Brianne Mcelroy, 69660 716.96 C.M[facility] 715.96 Office Visit 04/23/2014 2:45p [facility] All Gonzalez M.D. 48937 716.96 C.M.A. Office Visit 04/18/2014 1:26p [facility] Emmanuel RIZZOJonn Franco, 22714 327.23 M.D. Office Visit 04/01/2014 1:30p [facility] Alexi Raygoza Dennis, 63237 427.31 Material Mixer Wilda, [facility] Office Visit 12/06/2013 1:15p [facility] Alexi Jaret [place], 37521 427.31 MJessica, [facility] Plan of Care Future Appointment(s):03/19/2018 10:15 am - Karely Coyle M.D. at [facility]03/06/2018 12:30 pm - Phuc Durand PA-C at [facility]03/06/2018 12:30 pm - FANTASMA Schneider at [facility]03/06/2018 12:30 pm - Karely Coyle M.D. at [facility]02/23/2018 - Karely Coyle M.D.M25.562 Pain in left kneeFollow up:Follow up: 2 weeks after [id number] Effusion, left kneeM17.12 Unilateral primary osteoarthritis, left knee
[2018-03-06] MEDS ORDERED: Dexamethasone TAB* 4 MG ONE (08:08)
[2018-03-06] MEDS ORDERED: ceFAZolin 2 GM PREMIX (*) 2 GM/50 ML BAG IVPB ONE (08:08)
[2018-03-06] MEDS ORDERED: Gabapentin CAP(*) 300 MG ONE (08:08)
[2018-03-06] MEDS ORDERED: Famotidine IV* 10 MG/ML 2 ML (20 mg) ONE (08:08)
[2018-03-06] MEDS ORDERED: Ondansetron ODT TAB* 4 MG ONE (08:08)
[2018-03-06] MEDS ORDERED: fentaNYL* 50 MCG/ML 2 ML VIAL (100 MCG VIAL) ONE ×2 (08:46→16:50)
[2018-03-06] MEDS ORDERED: Midazolam* 1 MG/ML 10 ML VIAL (10 MG) ONE (08:46)
[2018-03-06] MEDS ORDERED: KETAMINE HCL* 50 MG/ML 10 ML VIAL ONE (08:46)
[2018-03-06] MEDS ORDERED: Tranexamic Acid 1,000 MG/10 ML SDV IV ONE (09:48)
[2018-03-06] MEDS ORDERED: Bupivacaine 0.5% PF 10 ML VIAL INJ ONE ×2 (11:30→12:07)
[2018-03-06] MEDS ORDERED: Bupivacaine 0.25% SDV PF* 10 ML VIAL INJ ONE (12:07)
[2018-03-06] MEDS ORDERED: Propofol* 10 MG/ML 20 ML BTL IV PUSH ONE (12:08)
[2018-03-06] MEDS ORDERED: Propofol* 500 MG/50 ML BTL ONE (12:08)
[2018-03-06] MEDS ORDERED: Lidocaine 2% PF * 5 ML VIAL ONE (12:08)
[2018-03-06] MEDS ORDERED: Phenylephrine INJ* 10 MG/ML 1 ML VIAL (10 MG) ONE (12:08)
[2018-03-06] MEDS ORDERED: oxyCODONE/Acetamin 5/325 MG* TAB PO PRN (12:40)
[2018-03-06] MEDS ORDERED: Polyethylene Glycol 3350* 17 GM PACKET PO PRN (12:40)
[2018-03-06] MEDS ORDERED: diPHENhydraMINE IV* 50 MG/ML 1 ml VIAL (BENADRYL) IV PRN (12:40)
[2018-03-06] MEDS ORDERED: Ondansetron INJ* 2 MG/ML VIAL IV PRN (12:40)
[2018-03-06] MEDS ORDERED: diPHENhydraMINE PO* 25 MG PO PRN (12:40)
[2018-03-06] MEDS ORDERED: Morphine INJ* 2 MG/ML 1 ML SYRINGE (TWO MG - NEW SYRINGE VERSION) IV PRN (12:40)
[2018-03-06] MEDS ORDERED: Ondansetron TAB* 4 MG PO PRN (12:40)
[2018-03-06] MEDS ORDERED: diPHENhydraMINE LIQ* 12.5 MG/5 ML UDC PO PRN (12:40)
[2018-03-06] MEDS ORDERED: Magnesium Hydroxide LIQ* 30 ML UDC PO PRN (12:40)
[2018-03-06] MEDS ORDERED: Bisacodyl SUPP* 10 MG SUPP PR PRN (12:40)
--- NOTE | 2018-03-06 14:04 | RAD ---
INDICATION: Left knee arthroplasty COMPARISON: February 23, 2018 TECHNIQUE: Portable AP and crosstable lateral imaging was performed. FINDINGS: There is left knee arthroplasty. The prosthetic components appear well seated. There is no evidence of periprosthetic fracture. There is no overlying cooling jacket. IMPRESSION: INTERVAL LEFT KNEE ARTHROPLASTY.
[2018-03-06] MEDS ORDERED: Acetaminophen TAB* 325 MG ONE (14:42)
--- NOTE | 2018-03-06 16:01 | PN ---
Progress Note - Progress Note Date of Service: 03/06/18 SOAP: Subjective: [Pt was seen in PACU. Laying in bed, bear hugger on. She states that she took a tylenol for a headache and that has seemed to help. She states she has no pain of the operative site. VSS. ] Objective: [Alert and oriented. NAD She is able to df/pf slightly on the left ankle, right ankle has slightly more. df/pf was checked twice within 20 mins with some mild improvement. ] Assessment: [POD 0 - LTKA] Plan: [Tylenol for headaches Block seems to be wearing off, nursing will continue to monitor for improvement in df/pf Continue to monitor vital signs Pain medication is available should she start to feel surgical site pain PT/OT to start tomorrow Warfarin 6mg to be given tonight. ]
--- NOTE | 2018-03-06 16:34 | CONSULT ---
Subjective Date of Service: 03/06/18 Interval History: This is a very pleasant 67 year old female patient with a history of atrial fibrillation, KATHARINE (not on CPAP), HTN and osteoarthritis, knows to our service from previous surgical admission that presented today for elective left total knee arthroplasty with Dr. Coyle. She was seen in the PACU, alert and in no distress. States she is starting to have some sensation in the LLE now but is not having any pain. She denies any chest pain, no SOB, no nausea or vomiting and no fevers or chills. There were no intraoperative complications, she appears comfortable. We are being asked to consult for medical co-managment of her comorbidities while in the post-operative period. Family History: Findings - mother with dementia, father with IA Social History: Findings - no tobacco, no ETOH, no drug use Past Medical History: Findings - as stated above Review of Systems - Measurements Intake and Output: Intake and Output Last 24 Hours 03/04/18 03/05/18 03/06/18 03/07/18 06:59 06:59 06:59 06:59 Intake Total 2875 Output Total 1400 Balance 1475 Weight 246 lb 9.6 oz Intake: IV Fluids 2350 LR 2300 NS 50ML, Cefazolin 2G 50 Oral 525 Output: Solano 1000 Estimated Blood Loss 400 - Review of Systems Constitutional Symptoms: Negative: Weight Gain, Weight Loss, Weakness, Fatigue, Fever, Night Sweats, Unexplained Falls, Other Dermatology: Negative: Normal, Rash, Skin Lesions, Cancer, Skin Lumps, Other HEENT: Negative: Normal, Change in Hearing, Vertigo, Dental Problems, Tinnitus, Sinus Problem, Other Eyes: Negative: Normal, Change in Vision, Double Vision, Eye Pain, Glaucoma, Cataract, Contacts or Glasses, Other Thyroid: Negative: Normal, Goiter, Thyroid Nodule, Cold Intolerance, Heat Intolerance , Sweatiness, Tremor, Frequent Defecation, Constipation, Palpitations, Primary Hypothyroidism, Primary Hyperthyroidism, Weight Loss, Weight Gain, Change in Skin/Hair, Change in Menstruation, Radiation Exposure, Other Pulmonary: Negative: Normal, Cough, Sputum, Hemoptysis, Wheezing, Respiratory Distress, Shortness of Breath, COPD, Asthma, Exercise Intolerance, Home Oxygen, Other Cardiology: Negative: Normal, Chest Pain, Shortness of Breath, Palpitations, Swelling of Ankles, Peripheral Vascular Dis, Edema, Faintness, Syncope, Claudication, Proximal NocturnalDyspnea, Orthopnoea, Other Gastroenterology: Negative: Normal, Abdominal Pain, Nausea, Vomiting, Anorexia, Indigestion, Difficulty Swallowing, Heartburn, Constipation, Diarrhea, Blood in Stools, Change in Bowel Habits, Haematemesis, Melena, Other Genital - Urinary: Negative: Normal, Dysuria, Hematuria, Polyuria, Nocturia, Other Genitourinay - Female: Negative: Menses Normal, Vaginal Discharge, Menopause, Dysmenorrhea, Other Musculoskeletal: Positive: Other Endocrinology: Negative: Normal, Thyroid Problems, Adrenal Problems, Gonadal Problems, Family Hx Endocrine Disorders, Obesity, Diabetes Mellitus, Hyperglycemia, Hx Hypoglycemia, Diabetic Foot Ulcers, Calluses, Hirsutism, Menstral Abnormalities , Polydipsia, Polyuria, Gonadal Problems, Gynecomastia, Pituitary disease, Other Neurology: Positive: Numbness\Paresthesiae - numb LLE 2/2 regional anesthesia Psychiatry: Negative: Normal, Depression, Anxiety, Depressed Mood, Adhedonia, Sexual Dysfunction, Weight Change, Guilt Feelings, Tearfulness, Unusual Fatigue, Unusual Anxiety, Suicidal Ideation, Hypomania, Eating Disorders, Other Allergic/Immunologic: Negative: Hx Anaphylaxis, Hx Angioedema, Hx Environmental, Hx Seasonal, Athsma, Hx HIV, Immunocompromise, Swollen Glands LymphNodes, Other Objective Active Medications: Acetaminophen (Tylenol Tab*) 975 mg PO Q8H EVERARDO Bisacodyl (Dulcolax Supp*) 10 mg TN DAILY PRN PRN Reason: constipation Cyclobenzaprine HCl (Flexeril Tab*) 10 mg PO TID PRN PRN Reason: SPASMS Dexamethasone (Decadron Tab*) 8 mg PO ONCE ONE Stop: 03/06/18 06:01 Last Admin: 03/06/18 08:17 Dose: 8 mg Diazepam (Valium Tab(*)) 5 mg PO TID PRN PRN Reason: ANXIETY Dimenhydrinate (Dramamine Iv*) 12.5 mg IV PUSH ONCE PRN PRN Reason: NAUSEA/VOMITING Diphenhydramine HCl (Benadryl Iv*) 12.5 mg IV Q6H PRN PRN Reason: PRURITIS Diphenhydramine HCl (Benadryl Liq*) 12.5 mg PO Q6H PRN PRN Reason: itching Diphenhydramine HCl (Benadryl Po*) 25 mg PO Q6H PRN PRN Reason: itching Docusate Sodium (Colace Cap*) 100 mg PO BID [facility] Enoxaparin Sodium (Lovenox(*)) 40 mg SUBCUT Q24H [facility] Famotidine (Pepcid Iv*) 20 mg IV ONCE ONE Stop: 03/06/18 06:01 Last Admin: 03/06/18 08:17 Dose: 20 mg Fentanyl Citrate (Fentanyl*) 25 mcg IV Q3M PRN PRN Reason: PAIN - MODERATE Fluoxetine HCl (Prozac Cap*) 60 mg PO QAM [facility] Gabapentin (Neurontin Cap(*)) 600 mg PO ONCE ONE Stop: 03/06/18 06:01 Last Admin: 03/06/18 08:17 Dose: 600 mg Lactated Ringer's (Lactated Ringers 1000 Ml Bag*) 1,000 mls @ 125 mls/hr IV PER RATE [facility] Last Admin: 03/06/18 08:18 Dose: 125 mls/hr Cefazolin Sodium/Dextrose (Kefzol 1 Gm In Dextrose Duplex (*)) 1 gm in 50 mls @ 200 mls/hr IVPB Q8H [facility] Stop: 03/07/18 05:14 Lactated Ringer's (Lactated Ringers 1000 Ml Bag*) 1,000 mls @ 100 mls/hr IV PER RATE [facility] Lactulose (Lactulose*) 30 ml PO Q6H PRN PRN Reason: constipation Lidocaine/Sodium Bicarbonate (Buffered Lidocaine 0.9% Syrin*) 0.2 ml INTRADERM ONCE ONE Stop: 03/05/18 13:15 Magnesium Hydroxide (Milk Of Magnesia Liq*) 30 ml PO BID [facility] Magnesium Hydroxide (Milk Of Magnesia Liq*) 30 ml PO Q6H PRN PRN Reason: constipation Magnesium Oxide (Magox 400 Tab*) 400 mg PO QAM [facility] Metoprolol Tartrate (Lopressor Tab*) 100 mg PO BID [facility] Morphine Sulfate (Morphine Inj ((Syringe))*) 3 mg IV Q5M PRN PRN Reason: PAIN Morphine Sulfate (Morphine Inj (Syringe)*) 2 mg IV Q2H PRN PRN Reason: PAIN Naloxone HCl (Narcan*) 0.08 mg IV Q2M PRN PRN Reason: severe induced resp depression Non-Formulary Medication (Amlodipine Besylate [Norvasc 2.5 Mg Tab]) 2.5 mg PO QAM EVERARDO Ondansetron HCl (Zofran Tab*) 4 mg PO ONCE ONE Stop: 03/05/18 13:15 Last Admin: 03/06/18 08:17 Dose: 4 mg Ondansetron HCl (Zofran Inj*) 4 mg IV Q6H PRN PRN Reason: nausea Ondansetron HCl (Zofran Tab*) 4 mg PO Q6H PRN PRN Reason: NAUSEA Oxycodone HCl (Roxycodone Tab*) 10 mg PO Q4H PRN PRN Reason: SEVERE PAIN Oxycodone/Acetaminophen (Percocet 5/325 Tab*) 1 tab PO ONCE PRN PRN Reason: PAIN - MODERATE Oxycodone/Acetaminophen (Percocet 5/325 Tab*) 1 tab PO Q4H PRN PRN Reason: PAIN Oxycodone/Acetaminophen (Percocet 5/325 Tab*) 2 tab PO Q4H PRN PRN Reason: PAIN Pharmacy Profile Note (Scopolamine Patch Remove*) 1 note PATCH OFF Q72H ONE Stop: 03/09/18 06:26 Polyethylene Glycol/Electrolytes (Miralax*) 17 gm PO DAILY PRN PRN Reason: Constipation Prochlorperazine Edisylate (Compazine Inj*) 5 mg IV ONCE PRN PRN Reason: NAUSEA/VOMITING Scopolamine (Transderm-Scop 1.5 Mg Patch*) 1 patch TRANSDERM Q72H PRN PRN Reason: Nausea/Vomiting Tramadol HCl (Ultram*) 50 mg PO Q6H PRN PRN Reason: PAIN Warfarin Sodium (Coumadin Tab(*)) 6 mg PO ONCE@1700 ONE; Protocol Stop: 03/06/18 17:01 Vital Signs - 8 hr 03/06/18 03/06/18 03/06/18 12:36 12:37 12:40 Temperature 97.9 F Pulse Rate 59 56 Respiratory 21 14 Rate Blood Pressure 103/66 (mmHg) O2 Sat by Pulse 100 100 100 Oximetry 03/06/18 03/06/18 03/06/18 12:45 12:47 12:50 Temperature Pulse Rate 60 Respiratory 15 14 14 Rate Blood Pressure 123/75 (mmHg) O2 Sat by Pulse 100 100 100 Oximetry 03/06/18 03/06/1803/06/18 13:00 13:02 13:05 Temperature Pulse Rate 60 59 Respiratory 15 22 Rate Blood Pressure 139/85 (mmHg) O2 Sat by Pulse 100 100 100 Oximetry 03/06/18 03/06/18 03/06/18 13:16 13:20 13:31 Temperature Pulse Rate 73 57 Respiratory 12 14 12 Rate Blood Pressure 147/71 157/93 (mmHg) O2 Sat by Pulse 100 100 100 Oximetry 03/06/18 03/06/18 03/06/18 13:35 13:46 13:50 Temperature 98.1 F 97.0 F Pulse Rate 56 Respiratory 14 9 Rate Blood Pressure 150/81 (mmHg) O2 Sat by Pulse 100 98 Oximetry 03/06/18 03/06/18 03/06/18 14:00 14:08 14:16 Temperature Pulse Rate 62 54 58 Respiratory 16 7 8 Rate Blood Pressure 141/79 143/97 (mmHg) O2 Sat by Pulse 99 99 98 Oximetry 03/06/18 03/06/18 03/06/18 14:46 15:00 15:01 Temperature Pulse Rate 63 60 59 Respiratory 17 14 15 Rate Blood Pressure 143/78 130/68 (mmHg) O2 Sat by Pulse 99 97 98 Oximetry 03/06/18 03/06/18 15:15 15:17 Temperature 97.3 F Pulse Rate 60 Respiratory 21 Rate Blood Pressure 135/71 (mmHg) O2 Sat by Pulse 96 Oximetry Oxygen Devices in Use Now: Nasal Cannula Appearance: Alert, well appearing female Eyes: No Scleral Icterus, PERRLA Ears/Nose/Mouth/Throat: NL Teeth, Lips, Gums, Mucous Membranes Moist Neck: NL Appearance and Movements; NL JVP, Trachea Midline Respiratory: Symmetrical Chest Expansion and Respiratory Effort, Clear to Auscultation Cardiovascular: NL Sounds; No Murmurs; No JVD, RRR, No Edema, - - RSR on telemetry Abdominal: - - nontender, hypoactive BS Extremities: No Edema, No Clubbing, Cyanosis Neurological: Alert and Oriented x 3, - - diminished sensation and ROM 2/2 regional anesthesia Nutrition: - - NPO Diagnostic Imaging: Patient Name: NINI FONG Medical Record#: [id number] Ordering Physician: Love MEEK Acct.#: [id number] : 1950 Age: 67 Sex: F Location: AM ADMITS Exam Date: 03/06/18 1240 ADM Status: ADM IN Order Information: KNEE LEFT 1-2 VWS Accession Number: [id number] CPT: 41964 INDICATION: Left knee arthroplasty COMPARISON: February 23, 2018 TECHNIQUE: Portable AP and crosstable lateral imaging was performed. FINDINGS: There is left knee arthroplasty. The prosthetic components appear well seated. There is no evidence of periprosthetic fracture. There is no overlying cooling jacket. IMPRESSION: INTERVAL LEFT KNEE ARTHROPLASTY. <Electronically signed by Rex Mcintosh MD in OV> 03/06/18 1401 Dictated By: Rex Mcintosh MD Dictated Date/Time: 03/06/18 1401 Transcribed Date/Time: 03/06/18 1358 Copy to: Assessment/Plan - Billing Assessment: This is a 67 year old female with history of OA of the knees that failed conservative treatment in the outpatient environment that presented for elective LTKA today. Recommendations: 1. OA, s/p LTKA, POD0 - POC as per orthopedics - Pain control, bowel regimen - DVT prophy with lovenox 40mg daily - OOB with PT/OT 2. History of Paroxysmal Afib - 48 hour telemetry monitoring post-operatively, as patient's afib has been brought on by stress and acute illness in the past, currently in RSR on tele - Continue metoprolol for rate control - Patient not on AC at home, but will be for the next month after surgery 3. History of KATHARINE, not on CPAP - Will place on overnight oximetry - O2 as needed to keep sats >90% 4. Hypertension - Continue amlodipine, hold triamterene for now Diet: -Regular, as tolerated Code Status: - Full code Admission Status and Rationale: - Remain inpatient, dispo as per orthopedics Thank you for the courtesy of this consult, we will follow the patient along with you.
[2018-03-06] MEDS ORDERED: oxyCODONE/Acetamin 5/325 MG* TAB ONE ×2 (16:51→17:01)
[2018-03-06] MEDS: fentaNYL* 50 MCG/ML 2 ML VIAL (100 MCG VIAL) IV PRN ×3 (16:52→17:16)
[2018-03-06] MEDS: oxyCODONE/Acetamin 5/325 MG* TAB PO PRN ×3 (16:52→22:03)
[2018-03-06] MEDS ORDERED: Warfarin TAB(*) 6 MG PO ONE (17:00)
[2018-03-06] MEDS ORDERED: traMADol TAB* 50 MG ONE (17:57)
[2018-03-06] MEDS: Acetaminophen TAB* 325 MG PO SCH ×2 (17:59→22:16)
[2018-03-06] MEDS: traMADol TAB* 50 MG PO PRN (17:59)
[2018-03-06] MEDS: ceFAZolin 1 GM in Dextrose (*) 1 GM/50 ML BAG IVPB SCH (18:08)
[2018-03-06] MEDS: oxyCODONE TAB* 5 MG TAB PO PRN (18:14)
[2018-03-06] MEDS: HYDROmorphone INJ* 0.5 MG/0.5 ML SYRINGE IV PRN (19:57)
[2018-03-06] MEDS: Cyclobenzaprine TAB* 10 MG PO PRN (19:58)
[2018-03-06] MEDS: Metoprolol Tartrate TAB* 100 MG TAB PO SCH (20:09)
[2018-03-06] MEDS: Docusate CAP* 100 MG PO SCH (20:10)
[2018-03-06] MEDS: Magnesium Hydroxide LIQ* 30 ML UDC PO SCH (20:13)
[2018-03-06] MEDS: Diazepam TAB(*) 5 MG PO PRN (22:08)
[2018-03-07] MEDS: HYDROmorphone INJ* 0.5 MG/0.5 ML SYRINGE IV PRN ×3 (00:12→12:11)
[2018-03-07] MEDS: oxyCODONE TAB* 5 MG TAB PO PRN ×5 (00:12→20:10)
[2018-03-07] MEDS: oxyCODONE/Acetamin 5/325 MG* TAB PO PRN ×5 (02:14→22:54)
[2018-03-07] MEDS: ceFAZolin 1 GM in Dextrose (*) 1 GM/50 ML BAG IVPB SCH ×2 (02:28→10:21)
[2018-03-07] MEDS: traMADol TAB* 50 MG PO PRN (02:28)
[2018-03-07] MEDS: Acetaminophen TAB* 325 MG PO SCH ×3 (04:14→21:02)
[2018-03-07] MEDS: Cyclobenzaprine TAB* 10 MG PO PRN (04:16)
[2018-03-07 06:11] LABS: Hematocrit 33 % (35-47); Hemoglobin 11.3 g/dl (12.0-16.0); Mean Platelet Volume 8.7 um3 (7.4-10.4); Platelet Count 162 10^3/ul (150-450)
[2018-03-07 06:22] LABS: INR 0.9 (0.77-1.02)
[2018-03-07] MEDS: Morphine TAB Extended Release (*) 15 MG TAB.ER PO SCH ×2 (07:53→20:11)
[2018-03-07] MEDS ORDERED: Triamterene/HCTZ 37.5-25 MG* CAP PO SCH (09:00)
[2018-03-07] MEDS: Metoprolol Tartrate TAB* 100 MG TAB PO SCH ×2 (09:10→20:11)
[2018-03-07] MEDS: amLODIPine TAB* 5 MG PO SCH (09:10)
[2018-03-07] MEDS: Magnesium Hydroxide LIQ* 30 ML UDC PO SCH ×2 (09:10→20:11)
[2018-03-07] MEDS: FLUoxetine CAP* 20 MG PO SCH (09:11)
[2018-03-07] MEDS: Docusate CAP* 100 MG PO SCH ×2 (09:11→20:11)
[2018-03-07] MEDS: Magnesium Oxide TAB* 400 MG PO SCH (09:11)
--- NOTE | 2018-03-07 09:25 | PN ---
Progress Note - Progress Note Date of Service: 03/07/18 SOAP: Subjective: []Patient seen OOB in chair. She is feeling well, pain is well controlled. Denies chest pain, shortness of breath, dizziness, nausea or leg numbness. Objective: []General: Well appearing, NAD LLE: Left knee dressing CDI without surrounding erythema. DF/PF intact. DP2+ Sensation intact distally. Calves supple and nontender without erythema, edema or palpable cords Assessment: [] Left total knee arthroplasty POD 1 Plan: []WBAT PT/OT Lovenox, Coumadin 8 mg Vital Signs Temp 98.7 F 03/07/18 07:25 Pulse 63 03/07/18 07:25 Resp 18 03/07/18 09:14 BP 143/70 03/07/18 07:25 Pulse Ox 100 03/07/18 08:00 Intake & Output 03/06/18 03/07/18 03/07/18 18:59 06:59 18:59 Intake Total 3025 400 240 Output Total 2150 750 Balance 875 -350 240 Weight 246 lb 9.6 oz Intake: IV Fluids 2500 LR 2450 NS 50ML, Cefazolin 2G 50 Oral 525 400 240 Output: Solano 1750 750 Estimated Blood Loss 400 Laboratory Last Values Hgb 11.3 g/dl (12.0-16.0) L 03/07/18 05:29 Hct 33 % (35-47) L 03/07/18 05:29 Plt Count 162 10^3/ul (150-450) 03/07/18 05:29 MPV 8.7 um3 (7.4-10.4) 03/07/18 05:29 INR (Anticoag Therapy) 0.90 (0.77-1.02) 03/07/18 05:29 Sodium 135 mmol/L (135-145) 03/07/18 05:29 Potassium 3.9 mmol/L (3.5-5.0) 03/07/18 05:29 Chloride 100 mmol/L (101-111) L 03/07/18 05:29 Carbon Dioxide 29 mmol/L (22-32) 03/07/18 05:29 Anion Gap 6 mmol/L (2-11) 03/07/18 05:29 BUN 16 mg/dL (6-24) 08/08/18 05:29 Creatinine 1.04 mg/dL (0.51-0.95) H 03/07/18 05:29 Est GFR ( Amer) 64.2 (>60) 03/07/18 05:29 Est GFR (Non-Af Amer) 53.0 (>60) 03/07/18 05:29 BUN/Creatinine Ratio 15.4 (8-20) 03/07/18 05:29 Glucose 126 mg/dL (70-100) H 03/07/18 05:29 Calcium 9.4 mg/dL (8.6-10.3) 03/07/18 05:29
--- NOTE | 2018-03-07 09:50 | OP ---
DATE OF OPERATION: 03/06/18 - ROOM #343 DATE OF : 52 ATTENDING SURGEON: Karely Coyle MD PSYCHIATRIC CNS: FANTASMA Moreno. Ms. Reyes did help throughout the procedure with preparation of the leg, wound retraction, manipulation of the knee, and wound closure. ANESTHESIOLOGIST: Dr. Knight. ANESTHESIA: Spinal. PRE-OP DIAGNOSIS: Severe end-stage degenerative osteoarthritis of the left knee joint. POST-OP DIAGNOSIS: Severe end-stage degenerative osteoarthritis of the left knee joint. OPERATIVE PROCEDURE: Left total knee arthroplasty. BRIEF HISTORY/INDICATION: Ms. Gerardo is a 67-year-old female with years of increasingly severely left knee pain and valgus deformity. She failed conservative treatment with antiinflammatories, pain medication, intraarticular injections, and physical therapy. Radiograph showed [id number] arthritis. She elected to undergo left total knee arthroplasty due to continued pain and decreased quality of life. Informed consent was obtained from the patient. The patient understood the risks of the surgery included, but were not limited to, bleeding, infection, damage to nearby structures, continued pain, need for further surgery, intraoperative fracture, nerve palsy, hardware failure or loosening, knee stiffness, loss of motion, stroke, heart attack, blood clot, and . She wished to proceed. INTRAOPERATIVE FINDINGS: Intraoperatively, the patient was noted to have extreme osteopenia throughout the case. She had full-thickness loss of cartilage in all 3 compartments. She had significant osteophyte formation. TOURNIQUET TIME: 50 minutes. ESTIMATED BLOOD LOSS: 200 cc. COMPLICATIONS: None. SPECIMEN: Bone and cartilage from left knee joint sent to pathology. HARDWARE USED: This is cemented [employer] total knee arthroplasty hardware. Two packages of Simplex bone cement. For the femur, a left size 6 posterior stabilized Oxinium femoral component. For the tibia, a size 6 left tibial base plate Millie II. For the insert, a 9 mm posterior stabilized articular insert size 5/6 and for the patella, 38-mm, 3-peg all poly patella. DESCRIPTION OF PROCEDURE: Ms. Gerardo was identified in the preanesthesia unit. Her left lower extremity was marked with a correct operative side. Informed consent was signed and placed in the chart. The patient was taken to the operating room and placed under spinal anesthesia. A Solano catheter was placed. Tourniquet was placed on the left thigh. Left lower extremity was prepped and draped in the usual sterile fashion. Preoperative time-out was made to correctly identify the patient side and site. Appropriate perioperative antibiotic were given within 1 hour of incision. Tourniquet was inflated and total tourniquet time for this procedure was 50 minutes. A midline incision was made with a 10-blade and carried down to the extensor mechanism. A new 10-blade was used to make a standard medial parapatellar arthrotomy. The patella was subluxed laterally. Electrocautery was used to subperiosteally elevate the soft tissue off the superomedial tibia to the mid sagittal plane. Any osteophytes were carefully removed with a rongeur. The knee was flexed up. Anterior horn of the lateral meniscus was sharply released as well as the ACL. A drill was used to enter the distal femur. Intramedullary distal femoral cutting guide was pinned into position. Oscillating saw was used to make the distal femoral cut. Next, the external rotation guide was pinned on the distal femur. The distal femur was sized to size 6. A size 6 multi-cutting jig was pinned on the distal femur. Oscillating saw was used to make the appropriate 4 chamfer cuts. Next, the PCL was completely released and the tibia was subluxed anteriorly. Extramedullary tibial cutting guide was pinned on the proximal tibia. The oscillating saw was used to make the proximal tibial cut perpendicular to the mechanical axis of the tibia. The bone was carefully removed. The knee was brought out into full extension. Medial and lateral ligaments had good balancing. A spacer block had satisfactory fit with the knee in full extension. Flexion and extension gaps were well-balanced. The knee was flexed up. Lamina finished carpet inspector was placed both medially and laterally. Any remaining meniscus was carefully removed using electrocautery. Curved osteotome was used to remove any posterior osteophytes. A size 6 left femoral trial was placed on the distal femur and had excellent fit. The box for the posterior stabilized implant was prepared using a reamer and box cut osteotome. A size 6 tibial tray trial with a 9 mm insert trial was placed and the knee was taken through a range of motion. The knee has full extension to 120 degrees of flexion because of body habitus. There was satisfactory patellofemoral tracking. The patella was everted. A 9 mm of patellar bone and cartilage was carefully removed using an oscillating saw. Patella was sized to a size 38. Three peg holes were drilled through the size 38 guide. A 38 trial patella was placed and the knee was taken through range of motion. There was satisfactory patellofemoral tracking. All trials were carefully removed. The tibia was subluxed anteriorly and sized to a size 6. Proximal tibia was prepared using a size 6 keel punch. All bony cut surfaces were copiously irrigated with sterile saline and dried. Final implants were cemented into place starting with the tibia, followed by the femur, and last the patella. A 9 mm insert trial was placed and the knee was brought out into full extension. The tourniquet was turned down at 50 minutes. The knee was copiously irrigated with sterile saline. Electrocautery was used to obtain meticulous hemostasis. Once the cement had fully cured, insert trial was removed. Any cement around the implant and capsule was carefully removed. Final insert chosen was a 9 mm posterior stabilizer articular insert size 5/6. This was locked into position on the tibial tray without difficulty. Stability of the insert was checked and rechecked and noted to be stable. The knee was once again copiously irrigated with sterile saline. The extensor mechanism was closed using interrupted #1 Vicryls. The rest of the incision was closed in a layered fashion using 0 and 2-0 Vicryls. Skin was closed using running 3-0 nylon suture. Sterile Xeroform, 4x4s, and Webril were used to cover the incision. Gilbert wrap and cold pack were placed over this. The patient' s anesthesia was reversed without difficulty. She was taken to the PACU in stable condition. Intended weightbearing will be weightbearing as tolerated. Intended DVT prophylaxis will be Coumadin with a Lovenox bridge. [id number]/[facility] #: [id number] [facility] INSANEEsteban
--- NOTE | 2018-03-07 10:57 | PN ---
Subjective Date of Service: 03/07/18 Interval History: Patient seen and examined. Reports increased pain overnight, block wore off early, denies SOB, no palpitations, no chest pain, no SOB. Has been OOB to chair this am and states pain at rest. No further complaints. Family History: Findings - mother with dementia, father with [place] Social History: Findings - no tobacco, no ETOH, no drug use Past Medical History: Findings - as stated above Objective Active Medications: Acetaminophen (Tylenol Tab*) 975 mg PO Q8H [facility] Last Admin: 03/07/18 04:14 Dose: Not Given Amlodipine Besylate (Norvasc Tab*) 2.5 mg PO QAM [facility] Last Admin: 03/07/18 09:10 Dose: 2.5 mg Bisacodyl (Dulcolax Supp*) 10 mg [place] DAILY PRN PRN Reason: constipation Cyclobenzaprine HCl (Flexeril Tab*) 10 mg PO TID PRN PRN Reason: SPASMS Last Admin: 03/07/18 04:16 Dose: 10 mg Diazepam (Valium Tab(*)) 5 mg PO TID PRN PRN Reason: ANXIETY Last Admin: 03/06/18 22:08 Dose: 5 mg Dimenhydrinate (Dramamine Iv*) 12.5 mg IV PUSH ONCE PRN PRN Reason: NAUSEA/VOMITING Diphenhydramine HCl (Benadryl Iv*) 12.5 mg IV Q6H PRN PRN Reason: PRURITIS Diphenhydramine HCl (Benadryl Liq*) 12.5 mg PO Q6H PRN PRN Reason: itching Diphenhydramine HCl (Benadryl Po*) 25 mg PO Q6H PRN PRN Reason: itching Docusate Sodium (Colace Cap*) 100 mg PO BID [facility] Last Admin: 03/07/18 09:11 Dose: 100 mg Enoxaparin Sodium (Lovenox(*)) 40 mg SUBCUT Q24H [facility] Fentanyl Citrate (Fentanyl*) 25 mcg IV Q3M PRN PRN Reason: PAIN - MODERATE Last Admin: 03/06/18 17:16 Dose: 25 mcg Fluoxetine HCl (Prozac Cap*) 60 mg PO QAM [facility] Last Admin: 03/07/18 09:11 Dose: 60 mg Hydromorphone HCl (Dilaudid Inj*) 1 mg IV Q4H PRN PRN Reason: PAIN Last Admin: 03/07/18 07:22 Dose: 1 mg Lactated Ringer's (Lactated Ringers 1000 Ml Bag*) 1,000 mls @ 125 mls/hr IV PER RATE [facility] Last Admin: 03/06/18 08:18 Dose: 125 mls/hr Lactated Ringer's (Lactated Ringers 1000 Ml Bag*) 1,000 mls @ 100 mls/hr IV PER RATE [facility] Last Admin: 03/07/18 04:19 Dose: 100 mls/hr Lactulose (Lactulose*) 30 ml PO Q6H PRN PRN Reason: constipation Magnesium Hydroxide (Milk Of Magnesia Liq*) 30 ml PO BID [facility] Last Admin: 03/07/18 09:10 Dose: 30 ml Magnesium Hydroxide (Milk Of Magnesia Liq*) 30 ml PO Q6H PRN PRN Reason: constipation Magnesium Oxide (Magox 400 Tab*) 400 mg PO QAM [facility] Last Admin: 03/07/18 09:11 Dose: 400 mg Metoprolol Tartrate (Lopressor Tab*) 100 mg PO BID [facility] Last Admin: 03/07/18 09:10 Dose: 100 mg Morphine Sulfate (Morphine Inj ((Syringe))*) 3 mg IV Q5M PRN PRN Reason: PAIN Morphine Sulfate (Morphine Inj ((Syringe))*) 2 mg IV Q2H PRN PRN Reason: PAIN Morphine Sulfate (Ms Contin(*)) 15 mg PO Q12H [facility] Last Admin: 03/07/18 07:53 Dose: 15 mg Naloxone HCl (Narcan*) 0.08 mg IV Q2M PRN PRN Reason: severe induced resp depression Ondansetron HCl (Zofran Inj*) 4 mg IV Q6H PRN PRN Reason: nausea Ondansetron HCl (Zofran Tab*) 4 mg PO Q6H PRN PRN Reason: NAUSEA Oxycodone HCl (Roxycodone Tab*) 10 mg PO Q4H PRN PRN Reason: SEVERE PAIN Last Admin: 03/07/18 09:14 Dose: 10 mg Oxycodone/Acetaminophen (Percocet 5/325 Tab*) 1 tab PO Q4H PRN PRN Reason: PAIN Oxycodone/Acetaminophen (Percocet 5/325 Tab*) 2 tab PO Q4H PRN PRN Reason: PAIN Last Admin: 03/07/18 06:18 Dose: 2 tab Pharmacy Profile Note (Scopolamine Patch Remove*) 1 note PATCH OFF Q72H ONE Stop: 03/09/18 06:26 Polyethylene Glycol/Electrolytes (Miralax*) 17 gm PO DAILY PRN PRN Reason: Constipation Prochlorperazine Edisylate (Compazine Inj*) 5 mg IV ONCE PRN PRN Reason: NAUSEA/VOMITING Scopolamine (Transderm-Scop 1.5 Mg Patch*) 1 patch TRANSDERM Q72H PRN PRN Reason: Nausea/Vomiting Tramadol HCl (Ultram*) 50 mg PO Q6H PRN PRN Reason: PAIN Last Admin: 03/07/18 02:28 Dose: 50 mg Warfarin Sodium (Coumadin Tab(*)) 8 mg PO ONCE@1700 ONE; Protocol Stop: 03/07/18 17:01 Vital Signs - 8 hr 03/07/18 03/07/18 03/07/18 04:15 04:16 06:18 Temperature 97.5 F Pulse Rate 72 Respiratory 18 18 18 Rate Blood Pressure 147/83 (mmHg) O2 Sat by Pulse 100 Oximetry 03/07/18 03/07/18 03/07/18 07:22 07:25 07:53 Temperature 98.7 F Pulse Rate 63 Respiratory 18 15 16 Rate Blood Pressure 143/70 (mmHg) O2 Sat by Pulse 100 Oximetry 03/07/18 03/07/18 03/07/18 08:00 09:07 09:08 Temperature Pulse Rate Respiratory 16 18 16 Rate Blood Pressure (mmHg) O2 Sat by Pulse 100 Oximetry 03/07/18 03/07/18 09:14 10:21 Temperature Pulse Rate Respiratory 18 18 Rate Blood Pressure (mmHg) O2 Sat by Pulse Oximetry Oxygen Devices in Use Now: None Appearance: alert, tired-appearing, NAD Eyes: No Scleral Icterus, PERRLA Ears/Nose/Mouth/Throat: NL Teeth, Lips, Gums, Mucous Membranes Moist Neck: NL Appearance and Movements; NL JVP, Trachea Midline Respiratory: Symmetrical Chest Expansion and Respiratory Effort, Clear to Auscultation Cardiovascular: NL Sounds; No Murmurs; No JVD, RRR, - - +2 pedal pulse Extremities: No Clubbing, Cyanosis Skin: No Rash or Ulcers, - - dressing CDI Neurological: Alert and Oriented x 3, NL Sensation, NL Muscle Strength and Tone Nutrition: Taking PO's Result Diagrams: 03/07/18 05:29 03/07/18 05:29 Diagnostic Imaging: Patient Name: NINI FONG Medical Record#: [id number] Ordering Physician: Love MEEK Acct.#: [id number] : 1950 Age: 67 Sex: F Location: AM [facility] Exam Date: 03/06/18 1240 ADM Status: ADM IN Order Information: KNEE LEFT 1-2 VWS Accession Number: [id number] CPT: 09868 INDICATION: Left knee arthroplasty COMPARISON: February 23, 2018 TECHNIQUE: Portable AP and crosstable lateral imaging was performed. FINDINGS: There is left knee arthroplasty. The prosthetic components appear well seated. There is no evidence of periprosthetic fracture. There is no overlying cooling jacket. IMPRESSION: INTERVAL LEFT KNEE ARTHROPLASTY. <Electronically signed by Rex Mcintosh MD in [place]> 03/06/18 1401 Dictated By: Rex Mcintosh MD Dictated Date/Time: 03/06/18 1401 Transcribed Date/Time: 03/06/18 1358 Copy to: Assess/Plan/Problems-Billing Assessment: This is a 67 year old female with history of PAF, KATHARINE and HTN, with OA of the knees that failed conservative treatment in the outpatient environment that presented for elective LTKA 03/06/2018. - Patient Problems (1) Status post left knee replacement Code(s): Z96.652 - PRESENCE OF LEFT ARTIFICIAL KNEE JOINT SNOMED Code(s): 0304126443168 Comment: - POD1, POC as per ortho - Pain control , bowel regimen, OOB with PT as tolerated - DVT prophy as per ortho with lovenox - Labs and VS stable today (2) PAF (paroxysmal atrial fibrillation) Code(s): I48.0 - PAROXYSMAL ATRIAL FIBRILLATION SNOMED Code(s): 669234366 Comment: - Currently regular - recommend tele 48 hours post op - Continue metoprolol (3) HTN (hypertension) Code(s): I10 - ESSENTIAL (PRIMARY) HYPERTENSION SNOMED Code(s): 87487580 Comment: - Normotensive - Continue metoprolol and amlodipine (4) KATHARINE (obstructive sleep apnea) Code(s): G47.33 - OBSTRUCTIVE SLEEP APNEA (ADULT) (PEDIATRIC) SNOMED Code(s): 67875252 Comment: - Does not use CPAP - Overnight pulse ox monitoring (5) DVT prophylaxis Code(s): HLN3319 - SNOMED Code(s): 932184689 Comment: - Lovenox daily (6) Full code status Code(s): Z78.9 - OTHER SPECIFIED HEALTH STATUS SNOMED Code(s): 543865987 Status and Disposition: Remain inpatient, dispo per orthopedics
[2018-03-07] MEDS: Enoxaparin(*) 40 MG/0.4 ML SYR SUBCUT SCH (11:08)
[2018-03-07] MEDS ORDERED: Warfarin TAB(*) 4 MG PO ONE (17:00)
[2018-03-08] MEDS: oxyCODONE TAB* 5 MG TAB PO PRN ×5 (01:11→22:14)
[2018-03-08] MEDS: oxyCODONE/Acetamin 5/325 MG* TAB PO PRN ×4 (03:30→18:09)
[2018-03-08] MEDS: Cyclobenzaprine TAB* 10 MG PO PRN (03:33)
[2018-03-08] MEDS: Acetaminophen TAB* 325 MG PO SCH ×3 (03:44→20:35)
[2018-03-08] MEDS: Diazepam TAB(*) 5 MG PO PRN (05:25)
[2018-03-08 06:24] LABS: INR 1.17 (0.77-1.02)
[2018-03-08 06:30] LABS: Hematocrit 30 % (35-47); Hemoglobin 10.5 g/dl (12.0-16.0)
[2018-03-08 06:57] LABS: Mean Platelet Volume 8.9 um3 (7.4-10.4); Platelet Count 140 10^3/ul (150-450)
[2018-03-08] MEDS: Morphine TAB Extended Release (*) 15 MG TAB.ER PO SCH ×2 (07:54→20:33)
[2018-03-08] MEDS: Magnesium Hydroxide LIQ* 30 ML UDC PO SCH ×2 (08:13→20:35)
[2018-03-08] MEDS: FLUoxetine CAP* 20 MG PO SCH (08:14)
[2018-03-08] MEDS: Magnesium Oxide TAB* 400 MG PO SCH (08:14)
[2018-03-08] MEDS: amLODIPine TAB* 5 MG PO SCH (08:14)
[2018-03-08] MEDS: Docusate CAP* 100 MG PO SCH ×2 (08:15→20:34)
[2018-03-08] MEDS: Metoprolol Tartrate TAB* 100 MG TAB PO SCH ×2 (08:15→20:33)
[2018-03-08] MEDS ORDERED: Metoprolol Tartrate IV* 1 MG/ML 5 ML VIAL IV ONE (09:02)
[2018-03-08] MEDS ORDERED: NS 0.9% 500 ML* 500 ML IV ONE (09:02)
--- NOTE | 2018-03-08 09:55 | PN ---
Progress Note - Progress Note Date of Service: 03/08/18 SOAP: Subjective: []Patient seen at bedside. She feels well with no chest pain, shortness of breath, dizziness or knee pain. She is in a -fib which she has experienced before and states that although she usually feels her irregular beats, she does not on this occasion. She has been given 5 mg IV metoprolol. Objective: [] General: Well appearing, NAD LLE: Left knee dressing changed, incision CDI without surrounding erythema. DF/ PF intact. DP2+ Sensation intact distally. Calves supple and nontender without erythema, edema or palpable cords Assessment: [] Left total knee arthroplasty POD 2 Plan: []WBAT PT/OT lovenox, coumadin 8 mg Appreciate hospitalist medical co-management Vital Signs Temp 98.3 F 03/08/18 07:30 Pulse 99 03/08/18 09:27 Resp 16 03/08/18 08:00 BP 117/59 03/08/18 09:27 Pulse Ox 94 03/08/18 08:00 Intake & Output 03/07/18 03/08/18 03/08/18 18:59 06:59 18:59 Intake Total 8179 600 240 Output Total 400 500 675 Balance 7779 100 -435 Intake: IV Fluids 6554 LR 6554 IVPB 165 LR 165 Oral 1460 600 240 Output: Urine 400 500 675 Other: # Bowel Movements 0 # Voids 2 Laboratory Last Values Hgb 10.5 g/dl (12.0-16.0) L 03/08/18 05:53 Hct 30 % (35-47) L 03/08/18 05:53 Plt Count 140 10^3/ul (150-450) L 03/08/18 05:53 MPV 8.9 um3 (7.4-10.4) 03/08/18 05:53 INR (Anticoag Therapy) 1.17 (0.77-1.02) H 03/08/18 05:53 Sodium 135 mmol/L (135-145) 03/07/18 05:29 Potassium 3.9 mmol/L (3.5-5.0) 03/07/18 05:29 Chloride 100 mmol/L (101-111) L 03/07/18 05:29 Carbon Dioxide 29 mmol/L (22-32) 03/07/18 05:29 Anion Gap 6 mmol/L (2-11) 03/07/18 05:29 BUN 16 mg/dL (6-24) 03/07/18 05:29 Creatinine 1.04 mg/dL (0.51-0.95) H 03/07/18 05:29 Est GFR ( Amer) 64.2 (>60) 03/07/18 05:29 Est GFR (Non-Af Amer) 53.0 (>60) 03/07/18 05:29 BUN/Creatinine Ratio 15.4 (8-20) 03/07/18 05:29 Glucose 126 mg/dL (70-100) H 03/07/18 05:29 Calcium 9.4 mg/dL (8.6-10.3) 03/07/18 05:29
--- NOTE | 2018-03-08 10:26 | PN ---
Subjective Date of Service: 03/08/18 Interval History: Patient seen and examined. Per RN, patient has gone into afib on telemetry. Rate is around 108, patient is asymptomatic, denies chest pain, no SOB, no palpitations. BP is stable. HR increased somewhat when she was ambulating to the bathroom. Pain is well controlled today. Family History: Findings - mother with dementia, father with [place] Social History: Findings - no tobacco, no ETOH, no drug use Past Medical History: Findings - as stated above Objective Active Medications: Acetaminophen (Tylenol Tab*) 975 mg PO Q8H [facility] Last Admin: 03/08/18 03:44 Dose: Not Given Amlodipine Besylate (Norvasc Tab*) 2.5 mg PO QAM [facility] Last Admin: 03/08/18 08:14 Dose: 2.5 mg Bisacodyl (Dulcolax Supp*) 10 mg [place] DAILY PRN PRN Reason: constipation Cyclobenzaprine HCl (Flexeril Tab*) 10 mg PO TID PRN PRN Reason: SPASMS Last Admin: 03/08/18 03:33 Dose: 10 mg Diazepam (Valium Tab(*)) 5 mg PO TID PRN PRN Reason: ANXIETY Last Admin: 03/08/18 05:25 Dose: 5 mg Diphenhydramine HCl (Benadryl Iv*) 12.5 mg IV Q6H PRN PRN Reason: PRURITIS Diphenhydramine HCl (Benadryl Liq*) 12.5 mg PO Q6H PRN PRN Reason: itching Diphenhydramine HCl (Benadryl Po*) 25 mg PO Q6H PRN PRN Reason: itching Docusate Sodium (Colace Cap*) 100 mg PO BID [facility] Last Admin: 03/08/18 08:15 Dose: 100 mg Enoxaparin Sodium (Lovenox(*)) 40 mg SUBCUT Q24H [facility] Last Admin: 03/07/18 11:08 Dose: 40 mg Fluoxetine HCl (Prozac Cap*) 60 mg PO QAM [facility] Last Admin: 03/08/18 08:14 Dose: 60 mg Hydromorphone HCl (Dilaudid Inj*) 1 mg IV Q4H PRN PRN Reason: PAIN Last Admin: 03/07/18 12:11 Dose: 1 mg Lactulose (Lactulose*) 30 ml PO Q6H PRN PRN Reason: constipation Magnesium Hydroxide (Milk Of Magnesia Liq*) 30 ml PO BID [facility] Last Admin: 03/08/18 08:13 Dose: 30 ml Magnesium Hydroxide (Milk Of Magnesia Liq*) 30 ml PO Q6H PRN PRN Reason: constipation Magnesium Oxide (Magox 400 Tab*) 400 mg PO QAM [facility] Last Admin: 03/08/18 08:14 Dose: 400 mg Metoprolol Tartrate (Lopressor Tab*) 100 mg PO BID [facility] Last Admin: 03/08/18 08:15 Dose: 100 mg Morphine Sulfate (Morphine Inj ((Syringe))*) 2 mg IV Q2H PRN PRN Reason: PAIN Last Admin: 03/08/18 03:40 Dose: 2 mg Morphine Sulfate (Ms Contin(*)) 15 mg PO Q12H [facility] Last Admin: 03/08/18 07:54 Dose: 15 mg Ondansetron HCl (Zofran Inj*) 4 mg IV Q6H PRN PRN Reason: nausea Last Admin: 03/07/18 20:18 Dose: 4 mg Ondansetron HCl (Zofran Tab*) 4 mg PO Q6H PRN PRN Reason: NAUSEA Oxycodone HCl (Roxycodone Tab*) 10 mg PO Q4H PRN PRN Reason: SEVERE PAIN Last Admin: 03/08/18 05:24 Dose: 10 mg Oxycodone/Acetaminophen (Percocet 5/325 Tab*) 1 tab PO Q4H PRN PRN Reason: PAIN Oxycodone/Acetaminophen (Percocet 5/325 Tab*) 2 tab PO Q4H PRN PRN Reason: PAIN Last Admin: 03/08/18 07:54 Dose: 2 tab Polyethylene Glycol/Electrolytes (Miralax*) 17 gm PO DAILY PRN PRN Reason: Constipation Tramadol HCl (Ultram*) 50 mg PO Q6H PRN PRN Reason: PAIN Last Admin: 03/07/18 02:28 Dose: 50 mg Vital Signs - 8 hr 03/08/18 03/08/18 03/08/18 03:30 03:33 03:40 Temperature 98.3 F Pulse Rate 70 Respiratory 20 20 20 Rate Blood Pressure 148/80 (mmHg) O2 Sat by Pulse 100 Oximetry 03/08/18 03/08/18 03/08/18 04:39 05:24 05:25 Temperature 98.5 F Pulse Rate 73 Respiratory 20 16 16 Rate Blood Pressure 152/73 (mmHg) O2 Sat by Pulse 98 Oximetry 03/08/18 03/08/18 03/08/18 07:30 07:45 07:46 Temperature 98.3 F Pulse Rate 67 Respiratory 17 16 16 Rate Blood Pressure 128/54 (mmHg) O2 Sat by Pulse 94 Oximetry 03/08/18 03/08/18 03/08/18 07:54 08:00 09:27 Temperature Pulse Rate 99 Respiratory 16 16 Rate Blood Pressure 117/59 (mmHg) O2 Sat by Pulse 94 Oximetry 03/08/18 09:46 Temperature Pulse Rate 116 Respiratory Rate Blood Pressure 113/60 (mmHg) O2 Sat by Pulse 89 Oximetry Oxygen Devices in Use Now: Nasal Cannula Appearance: Alert, well appearing, NAD Eyes: No Scleral Icterus, PERRLA Ears/Nose/Mouth/Throat: NL Teeth, Lips, Gums, Clear Oropharnyx Neck: NL Appearance and Movements; NL JVP, Trachea Midline Respiratory: Symmetrical Chest Expansion and Respiratory Effort, Clear to Auscultation Cardiovascular: NL Sounds; No Murmurs; No JVD, No Edema, - - irregular, afib on tele, no frther ectopy Extremities: No Edema, No Clubbing, Cyanosis Skin: No Rash or Ulcers, - - dressing CDI, tender over incision area Neurological: Alert and Oriented x 3, NL Sensation, NL Muscle Strength and Tone Nutrition: Taking PO's Result Diagrams: 03/08/18 05:53 03/07/18 05:29 Diagnostic Imaging: Patient Name: NINI FONG Medical Record#: [id number] Ordering Physician: Love MEEK Acct.#: [id number] : 1950 Age: 67 Sex: F Location: AM [facility]MITS Exam Date: 03/06/181239 ADM Status: ADM IN Order Information: KNEE LEFT 1-2 VWS Accession Number: [id number] CPT: 70027 INDICATION: Left knee arthroplasty COMPARISON: February 23, 2018 TECHNIQUE: Portable AP and crosstable lateral imaging was performed. FINDINGS: There is left knee arthroplasty. The prosthetic components appear well seated. There is no evidence of periprosthetic fracture. There is no overlying cooling jacket. IMPRESSION: INTERVAL LEFT KNEE ARTHROPLASTY. <Electronically signed by Rex Mcintosh MD in [place]> 03/06/18 1401 Dictated By: Rex Mcintosh MD Dictated Date/Time: 03/06/18 1401 Transcribed Date/Time: 03/06/18 1358 Copy to: Assess/Plan/Problems-Billing Assessment: This is a 67 year old female with history of PAF, KATHARINE and HTN, with OA of the knees that failed conservative treatment in the outpatient environment that presented for elective LTKA 03/06/2018 and is back in afib this morning. - Patient Problems (1) Status post left knee replacement Code(s): Z96.652 - PRESENCE OF LEFT ARTIFICIAL KNEE JOINT SNOMED Code(s): 4255569256146 Comment: - POD2, POC as per ortho - Pain control , bowel regimen, OOB to chair, no PT until HR controlled - DVT prophy as per ortho with lovenox - HGb stable today (2) PAF (paroxysmal atrial fibrillation) Code(s): I48.0 - PAROXYSMAL ATRIAL FIBRILLATION SNOMED Code(s): 841444234 Comment: - Back in afib this AM, rate is between 90-115 - One dose IV lopressor 5mg now - Renal function elevated, suspect dehyration causing cardiac irritability and conversion to afib, will give fluid bolus with lopressor and eval in 1 hour, RN aware (3) HTN (hypertension) Code(s): I10 - ESSENTIAL (PRIMARY) HYPERTENSION SNOMED Code(s): 84781798 Comment: - Normotensive, BP stable after IV lopressor given, continue to monitor - Continue metoprolol and amlodipine (4) KATHARINE (obstructive sleep apnea) Code(s): G47.33 - OBSTRUCTIVE SLEEP APNEA (ADULT) (PEDIATRIC) SNOMED Code(s): 52515733 Comment: - Does not use CPAP - Overnight pulse ox monitoring (5) DVT prophylaxis Code(s): EFH5337 - SNOMED Code(s): 548504238 Comment: - Lovenox daily (6) Full code status Code(s): Z78.9 - OTHER SPECIFIED HEALTH STATUS SNOMED Code(s): 414619224 Status and Disposition: Remain inpatient, may need to move to cardiac floor if HR/afib becomes uncontrolled. Discussed with ortho and floor staff.
[2018-03-08] MEDS: Enoxaparin(*) 40 MG/0.4 ML SYR SUBCUT SCH (11:56)
[2018-03-08] MEDS ORDERED: Warfarin TAB(*) 4 MG PO ONE (17:00)
[2018-03-09] MEDS: oxyCODONE/Acetamin 5/325 MG* TAB PO PRN ×3 (00:05→09:35)
[2018-03-09] MEDS: oxyCODONE TAB* 5 MG TAB PO PRN ×3 (02:06→12:06)
[2018-03-09] MEDS: Acetaminophen TAB* 325 MG PO SCH (04:28)
[2018-03-09 05:49] LABS: Hematocrit 28 % (35-47); Hemoglobin 9.9 g/dl (12.0-16.0); Mean Platelet Volume 8.3 um3 (7.4-10.4); Platelet Count 150 10^3/ul (150-450)
[2018-03-09 05:53] LABS: INR 1.96 (0.77-1.02)
[2018-03-09] MEDS ORDERED: Scopolamine PATCH Remove* 1 NOTE MISC PATCH OFF ONE (06:25)
[2018-03-09] MEDS: Magnesium Hydroxide LIQ* 30 ML UDC PO SCH (09:33)
[2018-03-09] MEDS: Magnesium Oxide TAB* 400 MG PO SCH (09:35)
[2018-03-09] MEDS: FLUoxetine CAP* 20 MG PO SCH (09:35)
[2018-03-09] MEDS: Docusate CAP* 100 MG PO SCH (09:41)
[2018-03-09] MEDS: Morphine TAB Extended Release (*) 15 MG TAB.ER PO SCH (09:42)
[2018-03-09] MEDS: amLODIPine TAB* 5 MG PO SCH (09:45)
[2018-03-09] MEDS: Metoprolol Tartrate TAB* 100 MG TAB PO SCH (09:46)
[2018-03-09 09:47] LABS: EGFR Non-African American 64.3 (>60)
[2018-03-09] MEDS ORDERED: oxyCODONE SR TAB(*) 10 MG TAB.SR PO SCH (10:00)
--- NOTE | 2018-03-09 10:29 | PN ---
Progress Note - Progress Note Date of Service: 03/09/18 SOAP: Subjective: Patient seen sitting up in bed. She feels well with no chest pain, shortness of breath, dizziness. She states that she has been having knee pain that is a 7 out of 10. Feels ready to go home and would like to discuss her long acting medication along with supplemental oxycodone. Objective: General: Well appearing, NAD LLE: Left knee dressing CDI. DF/PF intact. DP2+ Sensation intact distally. Calves supple and nontender without erythema, edema or palpable cords Vital Signs Temp 98.2 F 03/09/18 08:02 Pulse 66 03/09/18 08:02 Resp 16 03/09/18 09:36 BP 95/47 03/09/18 08:02 Pulse Ox 94 03/09/18 08:02 Intake & Output 03/08/18 03/09/18 03/09/18 18:59 06:59 18:59 Intake Total 1760 150 Output Total 1275 1150 300 Balance 485 -1000 -300 Intake: IV Fluids 500 NS (0.9%) 500 Oral 1260 150 Output: Urine 1275 1150 300 Other: Estimated Void Small Assessment: [] Left total knee arthroplasty POD 3 Plan: DC home today WBAT PT/OT coumadin 6 mg tonight 6 mg tomorrow 6 mg on monday recheck on monday Oxycontin 10mg 1 q12h sent Oxycodone 5mg 1 q6h sent Pt has percocet 5/325 at home that she will take
--- NOTE | 2018-03-09 11:35 | PN ---
Subjective Date of Service: 03/09/18 Interval History: Patient seen and examined. No further episodes of afib since yesterday. Participating in PT/OT without issue. No fevers or chills, no complaints. Family History: Findings - mother with dementia, father with [place] Social History: Findings - no tobacco, no ETOH, no drug use Past Medical History: Findings - as stated above Objective Active Medications: Acetaminophen (Tylenol Tab*) 975 mg PO Q8H [facility] Last Admin: 03/09/18 04:28 Dose: Not Given Amlodipine Besylate (Norvasc Tab*) 2.5 mg PO QAM [facility] Last Admin: 03/09/18 09:45 Dose: Not Given Bisacodyl (Dulcolax Supp*) 10 mg [place] DAILY PRN PRN Reason: constipation Cyclobenzaprine HCl (Flexeril Tab*) 10 mg PO TID PRN PRN Reason: SPASMS Last Admin: 03/08/18 03:33 Dose: 10 mg Diazepam (Valium Tab(*)) 5 mg PO TID PRN PRN Reason: ANXIETY Last Admin: 03/08/18 05:25 Dose: 5 mg Diphenhydramine HCl (Benadryl Iv*) 12.5 mg IV Q6H PRN PRN Reason: PRURITIS Diphenhydramine HCl (Benadryl Liq*) 12.5 mg PO Q6H PRN PRN Reason: itching Diphenhydramine HCl (Benadryl Po*) 25 mg PO Q6H PRN PRN Reason: itching Docusate Sodium (Colace Cap*) 100 mg PO BID [facility] Last Admin: 03/09/18 09:41 Dose: 100 mg Enoxaparin Sodium (Lovenox(*)) 40 mg SUBCUT Q24H [facility] Last Admin: 03/08/18 11:56 Dose: 40 mg Fluoxetine HCl (Prozac Cap*) 60 mg PO QAM [facility] Last Admin: 03/09/18 09:35 Dose: 60 mg Hydromorphone HCl (Dilaudid Inj*) 1 mg IV Q4H PRN PRN Reason: PAIN Last Admin: 03/07/18 12:11 Dose: 1 mg Lactulose (Lactulose*) 30 ml PO Q6H PRN PRN Reason: constipation Magnesium Hydroxide (Milk Of Magnesia Liq*) 30 ml PO BID [facility] Last Admin: 03/09/18 09:33 Dose: 30 ml Magnesium Hydroxide (Milk Of Magnesia Liq*) 30 ml PO Q6H PRN PRN Reason: constipation Magnesium Oxide (Magox 400 Tab*) 400 mg PO QAM [facility] Last Admin: 03/09/18 09:35 Dose: 400 mg Metoprolol Tartrate (Lopressor Tab*) 100 mg PO BID [facility] Last Admin: 03/09/18 09:46 Dose: Not Given Morphine Sulfate (Morphine Inj ((Syringe))*) 2 mg IV Q2H PRN PRN Reason: PAIN Last Admin: 03/08/18 03:40 Dose: 2 mg Ondansetron HCl (Zofran Inj*) 4 mg IV Q6H PRN PRN Reason: nausea Last Admin: 03/07/18 20:18 Dose: 4 mg Ondansetron HCl (Zofran Tab*) 4 mg PO Q6H PRN PRN Reason: NAUSEA Oxycodone HCl (Roxycodone Tab*) 10 mg PO Q4H PRN PRN Reason: SEVERE PAIN Last Admin: 03/09/18 07:06 Dose: 10 mg Oxycodone HCl (Oxycontin(*)) 10 mg PO Q12HR [facility] Last Admin: 03/09/18 09:36 Dose: 10 mg Oxycodone/Acetaminophen (Percocet 5/325 Tab*) 1 tab PO Q4H PRN PRN Reason: PAIN Oxycodone/Acetaminophen (Percocet 5/325 Tab*) 2 tab PO Q4H PRN PRN Reason: PAIN Last Admin: 03/09/18 09:35 Dose: 2 tab Polyethylene Glycol/Electrolytes (Miralax*) 17 gm PO DAILY PRN PRN Reason: Constipation Last Admin: 03/08/18 17:35 Dose: 17 gm Tramadol HCl (Ultram*) 50 mg PO Q6H PRN PRN Reason: PAIN Last Admin: 03/07/18 02:28 Dose: 50 mg Vital Signs - 8 hr 03/09/18 03/09/18 03/09/18 04:29 04:30 04:33 Temperature 98.3 F Pulse Rate 73 Respiratory 16 16 16 Rate Blood Pressure 136/60 (mmHg) O2 Sat by Pulse 97 Oximetry 03/09/18 03/09/18 03/09/18 07:06 08:02 08:30 Temperature 98.2 F Pulse Rate 66 Respiratory 16 18 16 Rate Blood Pressure 95/47 (mmHg) O2 Sat by Pulse 94 94 Oximetry 03/09/18 03/09/18 09:35 09:36 Temperature Pulse Rate Respiratory 16 16 Rate Blood Pressure (mmHg) O2 Sat by Pulse Oximetry Oxygen Devices in Use Now: None Appearance: alert, NAD Eyes: No Scleral Icterus, PERRLA Ears/Nose/Mouth/Throat: NL Teeth, Lips, Gums, Mucous Membranes Moist Neck: NL Appearance and Movements; NL JVP, Trachea Midline Respiratory: Symmetrical Chest Expansion and Respiratory Effort, Clear to Auscultation Cardiovascular: NL Sounds; No Murmurs; No JVD, No Edema, - - SR with PACs Extremities: No Edema, No Clubbing, Cyanosis Skin: No Rash or Ulcers, - - dressing CDI Neurological: Alert and Oriented x 3, NL Sensation Nutrition: Taking PO's Result Diagrams: 03/09/18 05:30 03/09/18 05:31 Diagnostic Imaging: Patient Name: NINI FONG Medical Record#: [id number] Ordering Physician: Love MEEK Acct.#: [id number] : 1950 Age: 67 Sex: F Location: AM [facility]MITS Exam Date: 03/06/181239 ADM Status: ADM IN Order Information: KNEE LEFT 1-2 VWS Accession Number: [id number] CPT: 28352 INDICATION: Left knee arthroplasty COMPARISON: February 23, 2018 TECHNIQUE: Portable AP and crosstable lateral imaging was performed. FINDINGS: There is left knee arthroplasty. The prosthetic components appear well seated. There is no evidence of periprosthetic fracture. There is no overlying cooling jacket. IMPRESSION: INTERVAL LEFT KNEE ARTHROPLASTY. <Electronically signed by Rex Mcintosh MD in [place]> 03/06/18 1401 Dictated By: Rex Mcintosh MD Dictated Date/Time: 03/06/18 1401 Transcribed Date/Time: 03/06/18 1358 Copy to: Assess/Plan/Problems-Billing Assessment: This is a 67 year old female with history of PAF, KATHARINE and HTN, with OA of the knees that failed conservative treatment in the outpatient environment that presented for elective LTKA 03/06/2018 and is back in afib 03/08/18 and spontanously converted same morning. - Patient Problems (1) Status post left knee replacement Code(s): Z96.652 - PRESENCE OF LEFT ARTIFICIAL KNEE JOINT SNOMED Code(s): 1907461779457 Comment: - POD3, POC as per ortho - Pain control , bowel regimen, OOB to chair, no PT until HR controlled - DVT prophy as per ortho with lovenox - HGb stable today (2) PAF (paroxysmal atrial fibrillation) Code(s): I48.0 - PAROXYSMAL ATRIAL FIBRILLATION SNOMED Code(s): 251454113 Comment: - Back in RSR with PACs after one dose IV lopressor and fluid bolus yesterday - Renal function normal today (3) HTN (hypertension) Code(s): I10 - ESSENTIAL (PRIMARY) HYPERTENSION SNOMED Code(s): 34311932 Comment: - Normotensive, BP stable - Continue metoprolol and amlodipine (4) KATHARINE (obstructive sleep apnea) Code(s): G47.33 - OBSTRUCTIVE SLEEP APNEA (ADULT) (PEDIATRIC) SNOMED Code(s): 47444383 Comment: - Does not use CPAP - Overnight pulse ox monitoring (5) DVT prophylaxis Code(s): TYK0130 - SNOMED Code(s): 967794316 Comment: - Lovenox daily as per ortho (6) Full code status Code(s): Z78.9 - OTHER SPECIFIED HEALTH STATUS SNOMED Code(s): 911929464 Status and Disposition: Medically optimized for DC as per orthopedics at their discretion today.
[2018-03-09] MEDS: Enoxaparin(*) 40 MG/0.4 ML SYR SUBCUT SCH (12:07)
[2018-03-09 12:48] VITALS: BP 129/53
--- NOTE | 2018-03-10 02:53 | DS ---
DISCHARGE SUMMARY: DATE OF ADMISSION: 03/06/18. DATE OF DISCHARGE: 03/09/18. PROVIDER: Dr. Karely Coyle* (dictated by FANTASMA Lamb). ADMITTING DIAGNOSIS: Left total knee arthroplasty. HISTORY OF PRESENT ILLNESS: Ms. Gerardo is a 67-year-old female with complaints of left knee pain secondary to end-stage osteoarthritis. She has failed conservative management and elected to proceed with a left total knee arthroplasty, which was performed on 03/06/18. HOSPITAL COURSE: The patient was admitted to [facility] on 03/06/18 and underwent a left total knee arthroplasty with no complications. The patient recovered briefly in the postanesthesia care unit and was then transferred to short stay surgical unit in stable condition. On postop day #1 the patient's H and H were 11.3 and 33. INR was 0.90 after 6 mg of Coumadin the night before. Dressing was clean, dry, and intact. The left lower extremity was neurovascularly intact. She demonstrated dorsiflexion and plantar flexion with good strength. The patient was able to get out of bed for physical therapy. Pain was controlled with oral pain medication at that time. On postop day #2, the urinary catheter was discontinued and the patient was able to void without difficulty. Incision was found to be benign with minimal drainage, no erythema or warmth. The patient's H and H was 10.5 and 30. INR was 1.17 after 8 mg of Coumadin the night before. The patient was in AFib during the morning, which she experienced before, but states that she usually feel the regular heart beat, she did not on this occasion. She was given 5 mg of metoprolol IV. Long-acting MS Contin given to the patient that night and added to the pain medication. As she was having trouble managing pain. On postop day #3, the patient's H and H were 9.9 and 28. INR was 1.96 after 8 mg of Coumadin the night before. The patient's pain was well controlled this day and found stable for discharge. Throughout the hospital course vital signs remained stable and the patient was afebrile. DISCHARGE CONDITION: Good. DISCHARGE MEDICATIONS: 1. Oxycodone 5 mg 1 tab every 6 hours as needed for breakthrough pain. 2. OxyContin 10 mg 1 tab every 12 hours as needed for pain. 3. Warfarin 2 mg take as prescribed. Home medications: 1. Vitamin D2. 2. Amlodipine 2.5 mg daily. 3. Magnesium. 4. Percocet as needed. 5. Fluoxetine 20 mg 3 capsules daily. 6. Folic acid. 7. Triamterene and hydrochlorothiazide 37.5/25. 8. Metoprolol 100 mg twice a day. DISCHARGE INSTRUCTIONS: 1. Weightbearing as tolerated. 2. Wound care: Okay to shower on postop day #3. No bathing, swimming, or submerging the wound. Use gentle, soap and pat dry. Cover with gauze, Gilbert wrap or tape. Call orthopedic office for increased drainage, redness, increased pain or fever. Go to the ER with shortness of breath or chest pain. 3. Diet: Regular diet. Increase fluids and fiber to prevent constipation. Continue to use stool softeners. Call office if no bowel motion within 48 hours. 4. Continue physical therapy and occupational therapy exercises as shown. 5. Visiting home nurses to do wound checks. 6. Visiting home nurses to draw blood for INR on Mondays and . 7. Coumadin dosing, please note that you have been given 2 mg tablets. She will be provided with dosing instructions on Monday and . If you do not receive instruction on dosing, please call our office right away. Please abhijeet the dosing instructions on your calender as they are provided to you. 8. A 6 mg of Coumadin tonight, 6 mg of Coumadin on Monday, 6 mg of Coumadin on Monday. Recheck on Monday. 9. Pain control with Percocet 5/325 mg 1 to 2 tablets by mouth every 4 to 6 hours as needed for pain, maximum of 10 tabs per day. Please note that Percocet contains Tylenol, acetaminophen. Maximum of daily dose of Tylenol 4000 mg from all sources. 10. Oxycodone 5 mg 1 tab every 6 hours as needed for breakthrough pain. 11. OxyContin 10 mg 1 cap every 12 hours as needed for pain. 12. Please note the narcotics and causes depression. 13. Antibiotics required for any dental work. 14. Follow up with Dr. Coyle within 10 to 14 days. Call for an appointment. Please call our office with any questions or concerns [phone] and medications she is on through [facility] inpatient pharmacy. FANTASMA LAMB [id number]/[facility] #: [id number] [facility]
== END 2018-03-09 12:35 | disposition home health service (06) | DRG 470 ==
LOC: AA 07:49 → SSU 17:36
PROVIDERS: ADMIT Orthopaedic Surgery Adult Reconstructive Orthopaedic Surgery; ATTEND Student in an Organized Health Care Education/Training Program
PROC: 0SRD069 Replacement of Left Knee Joint with Oxidized Zirconium on Polyethylene Synthetic Substitute, Cemented, Open Approach (ICD-10-PCS; principal; 2018-03-06 10:00)
DX: M17.12 Unilateral primary osteoarthritis, left knee (principal); F32.9 Major depressive disorder, single episode, unspecified; F41.9 Anxiety disorder, unspecified; I27.20 Pulmonary hypertension, unspecified; E55.9 Vitamin D deficiency, unspecified; D64.9 Anemia, unspecified; M25.462 Effusion, left knee; Z96.651 Presence of right artificial knee joint; G47.33 Obstructive sleep apnea (adult) (pediatric); I10 Essential (primary) hypertension; I48.0 Paroxysmal atrial fibrillation; M85.862 Other specified disorders of bone density and structure, left lower leg; M21.062 Valgus deformity, not elsewhere classified, left knee; M85.80 Other specified disorders of bone density and structure, unspecified site; R51 Headache; M25.762 Osteophyte, left knee; Z83.3 Family history of diabetes mellitus; Z79.01 Long term (current) use of anticoagulants; Z80.3 Family history of malignant neoplasm of breast; Z80.2 Family history of malignant neoplasm of other respiratory and intrathoracic organs; Z83.6 Family history of other diseases of the respiratory system; Z82.49 Family history of ischemic heart disease and other diseases of the circulatory system; Z81.8 Family history of other mental and behavioral disorders; Z72.89 Other problems related to lifestyle; Z91.040 Latex allergy status
CPT/HCPCS: 36415; 80048; 85014; 85018; 85049; 85610; 88305; 88311; 93005; A9270-GY; C1776; G8978-GP-CL; G8979-GP-CJ; G8980-GP-CJ; G8987-GO-CJ; G8988-GO-CJ; G8989-GO-CJ; J0690; J1170; J1650; J2250; J2270; J2405; J2704; J3010; J3490; J8540

== ENCOUNTER 2018-07-27 07:34 | Emergency (ER) | payer MEDICARE ==
[2018-07-27] MEDS ORDERED: traMADol TAB* 50 MG PO ONE (07:53)
[2018-07-27] MEDS ORDERED: HYDROcodone/ACETAMIN 5-325 MG* 1 TAB PO ONE (09:33)
--- NOTE | 2018-07-27 11:04 | ED ---
Back Pain - HPI Summary HPI Summary: Patient is a 67-year-old male presenting to the ED with sacral pain after falling backwards and landing on her butt. Injury occurred 3 days ago. She is been taking Tylenol and ibuprofen at home without relief. She is not been using heat or ice. She denies any other injuries, including head injury or LOC. She was previously on oxycodone 6 times daily for knee replacement. She states she does not have any of these medications left. She's never injured her sacrum in the past. She continues to ambulate, however with some difficulty and with a walker. She does not use assistive devices at baseline. Denies any bladder or bowel dysfunction. Denies any difficulty with urination or bowel movements. Denies any blood in the stool or urine. - History of Current Complaint Chief Complaint: EDBackInjuryPain Stated Complaint: BACK PAIN Time Seen by Provider: 07/27/18 07:43 Hx Obtained From: Patient Onset/Duration: Sudden Onset Onset/Duration: Started Days Ago Timing: Constant Back Pain Location: Is Discrete @ - sacral area without lumbar involvement Severity Initially: Severe Severity Currently: Severe Pain Intensity: 7 Pain Scale Used: 0-10 Numeric Character: Aching Aggravating Symptom(s): Movement, Lifting, Bending, Walking Alleviating Symptom(s): Rest, Position, Heat Associated Signs And Symptoms: Positive: Negative. Negative: Swelling, Redness , Bruising, Weakness, Numbness, Bladder Incontinence, Bowel Incontinence - Risk Factors AAA Risk Factors: Negative TAD Risk Factors: Negative Cauda Equina Risk Factors: Negative Epidural Abscess Risk Factors: Negative - Allergies/Home Medications Allergies/Adverse Reactions: Allergies Allergy/AdvReac Type Severity Reaction Status Date / Time latex Allergy Mild Rash And Verified 03/06/18 08:09 Itching NSAIDS (Non-Steroidal Allergy See Comment Verified 03/06/18 08:09 Anti-Inflamma PMH/Surg Hx/FS Hx/Imm Hx Previously Healthy: Yes Endocrine/Hematology History: Reports: Hx Anemia - Mild hemolytic anemia - follows with Dr Johnson Denies: Hx Diabetes, Hx Thyroid Disease Cardiovascular History: Reports: Hx Hypertension, Hx 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, Pulmonary Hypertension, Other Cardiovascular Problems/Disorders - Paroxysmal Atrial Fib,Thoracic Aorta ectasia Denies: Hx Pacemaker/ICD, Hx Peripheral Vascular Disease Respiratory History: Reports: Hx Sleep Apnea Denies: Hx Asthma, Hx Chronic Obstructive Pulmonary Disease (COPD), Other Respiratory Problems/Disorders GI History: Denies: Other GI Disorders History: Denies: Hx Dialysis, Hx Renal Disease, Other Problems/Disorders Musculoskeletal History: Reports: Hx Arthritis - BILATERAL KNEES, osteoarthritis , Other Musculoskeletal History - Ankylosing spondylitis, Hx of T11-12, L1 compression fracture after fall Denies: Hx Tendonitis Sensory History: Denies: Hx Cataracts, Hx Contacts or Glasses, Hx Glaucoma, Hx Hearing Aid Opthamlomology History: Denies: Hx Cataracts, Hx Contacts or Glasses, Hx Glaucoma Neurological History: Denies: Hx Dementia, Hx Seizures, Other Neuro Impairments/Disorders Psychiatric History: Denies: Hx Anxiety, Hx Depression, Hx Panic Disorder, Other Psychiatric Issues/Disorders - Cancer History Hx Chemotherapy: No Hx Radiation Therapy: No - Surgical History Surgery Procedure, Year, and Place: BILATERAL KNEE ARTHROSCOPIES. NASAL POLYPS. C SECTION. Low back surgery for herniated/ruptured discs 2004. Right Total Knee Replacement 2017. Tonsillectomy. Sphincterectomy-Anal Fissure. tO Hx Anesthesia Reactions: No - Immunization History Hx Pertussis Vaccination: No Immunizations Up to Date: Yes Infectious Disease History: No Infectious Disease History: Denies: History Other Infectious Disease, Traveled Outside the [place] in Last 30 Days - Social History Occupation: Unemployed Lives: Alone Alcohol Use: Weekly Alcohol Amount: 4-5 drinks wine/beer per week Hx Substance Use: Yes Substance Use Type: Reports: Prescribed Substance Use Comment - Amount & Last Used: hydrocodone Hx Tobacco Use: No Smoking Status (MU): Never Smoked Tobacco Review of Systems Constitutional: Negative Negative: Fever, Chills, Fatigue, Skin Diaphoresis Negative: Palpitations, Chest Pain Negative: Shortness Of Breath, Cough Negative: Abdominal Pain, Vomiting, Diarrhea Genitourinary: Negative Positive: no symptoms reported, see HPI. Negative: burning, discharge, incontinence Positive: Arthralgia - sacral pain Negative: Rash, Bruising Neurological: Negative All Other Systems Reviewed And Are Negative: Yes Physical Exam Triage Information Reviewed: Yes Vital Signs On Initial Exam: Initial Vitals Temp Pulse Resp BP Pulse Ox 98.1 F 63 18 154/79 99 07/27/18 07:44 07/27/18 07:44 07/27/18 07:44 07/27/18 07:44 07/27/18 07:44 Vital Signs Reviewed: Yes Appearance: Positive: No Pain Distress, Well-Nourished Skin: Positive: Skin Color Reflects Adequate Perfusion Head/Face: Positive: Normal Head/Face Inspection Eyes: Positive: Normal, JOSE, Conjunctiva Clear Neck: Positive: Supple, No Lymphadenopathy Respiratory/Lung Sounds: Positive: Clear to Auscultation, Breath Sounds Present Cardiovascular: Positive: RRR, Pulses are Symmetrical in both Upper and Lower Extremities Musculoskeletal: Positive: Pain @ - sacral pain Neurological: Positive: Speech Normal Psychiatric: Positive: Normal, Affect/Mood Appropriate Diagnostics - Vital Signs Vital Signs Temp Pulse Resp BP Pulse Ox 07/27/18 09:14 66 125/55 93 07/27/18 09:00 63 94 07/27/18 08:44 63 131/69 99 07/27/18 08:00 62 96 07/27/18 07:44 98.1 F 61 18 154/79 100 - Laboratory Lab Statement: Any lab studies that have been ordered have been reviewed, and results considered in the medical decision making process. Back Pain Course/Dx - Course Course Of Treatment: Patient's evaluated for lower sacral injury. Lumbar spine CT obtained:IMPRESSION: There is mildly comminuted minimally displaced fractures of the sacral ala. bilaterally. No extension into the sacral foramen is noted. There is suggestion of fracture of the S2 vertebra anteriorly. No other fractures are noted. Patient is given tramadol without good relief. She is then given 2 [place] with minimal relief. She is asking for more pain medications. Offered admission, however patient declines. She will follow-up with her PCP early next week. She is given prescriptions for oxycodone as well as Tylenol. Prior to discharge, patient was able to ambulate with the use of her walker. She is given return precautions. - Diagnoses Differential Diagnosis/HQI/PQRI: Positive: Fracture, Strain, Sprain Provider Diagnoses: Sacral fracture, closed Discharge - Sign-Out/Discharge Documenting (check all that apply): Patient Departure - Discharge Plan Condition: Stable Disposition: HOME Prescriptions: Acetaminophen TAB* [Tylenol TAB*] 650 mg PO Q8H PRN #30 tab PRN Reason: Pain Oxycodone TAB(NF) [Oxycodone HCl 10 MG] 10 mg PO Q6H PRN #16 tab MDD 4 PRN Reason: Pain Patient Education Materials: Sacral Fracture (ED) Referrals: Romelia Barrios MD [Primary Care Provider] - Additional Instructions: Please follow up with PCP as soon as possible for further management As discussed, pain control and early mobilization is important for healing time Tylenol 650mg three times daily Oxycodone up to four times daily as needed for pain You may also take ibuprofen 600mg three times daily - do not exceed 3 days Moist heat pads to the area Pillows for comfortable positioning - Billing Disposition and Condition Condition: STABLE Disposition: Home
[2018-07-27 11:51] VITALS: BP 121/79
== END 2018-07-27 12:38 | disposition home or self-care (01) ==
LOC: ED 07:34
DX: S32.10XA Unspecified fracture of sacrum, initial encounter for closed fracture (principal); W19.XXXA Unspecified fall, initial encounter; Y92.9 Unspecified place or not applicable; Z96.651 Presence of right artificial knee joint; Z88.6 Allergy status to analgesic agent; Z91.040 Latex allergy status
CPT/HCPCS: 72131; 99282; A9270-GY